=== PATIENT | male | born 2000 | race Caucasian/White ===

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

== ENCOUNTER 2021-07-04 11:29 | Emergency (ER) | payer OTHER, SELFPAY ==
--- NOTE | ~2021-07-04 | XR_ITS ---
EXAMINATION: XR finger 2nd RT min 2V INDICATION: Right second finger pain TECHNIQUE: Three views of the right second finger are obtained. COMPARISON: None available FINDINGS: There is soft tissue swelling of the second. No fracture is high. Bone alignment is normal. The joint spaces are unremarkable. IMPRESSION: 1. Soft tissue swelling without acute osseous abnormality. Reviewed, dictated and finalized at location A.
--- NOTE | 2021-07-04 11:33 | ED.UPPEXIN ---
HPI - Extremity Injury (Upper) General Chief Complaint: Wound/Laceration Stated Complaint: right 2nd finger injury Time Seen by Provider: 07/04/21 11:33 Source: patient Mode of arrival: ambulatory Limitations: no limitations History of Present Illness HPI narrative: Babar is a 21-year-old male patient presenting to the clinic today with complaints of a right index finger injury that occurred approximately 1 hour ago. 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 Does have some bleeding around the nail as well as a flap laceration to the dorsal finger just below the nailbed. Bleeding is controlled at this time Related Data Home Medications Medication Instructions Recorded Confirmed buspirone [BuSpar] 10 mg PO TID 05/15/20 05/15/20 pantoprazole [Protonix] 40 mg PO DAILY 05/15/20 05/15/20 paroxetine HCl [Paxil] 30 mg PO DAILY 05/15/20 05/15/20 Allergies Allergy/AdvReac Type Severity Reaction Status Date / Time No Known Allergies Allergy Verified 05/15/20 17:51 Review of Systems Review of Systems: Pertinent positives per HPI. Patient denies any fever, chills, rash, headache, visual changes, dizziness, cough, runny nose, sore throat, shortness of breath, chest pain, palpitations, nausea, vomiting, diarrhea, constipation, abdominal pain, or any urinary issues. PMFSH Past Medical History Medical History Anxiety Marijuana use PTSD (post-traumatic stress disorder) Social History Social History Smoking status: Never smoker Gender identity (if verbalized by the patient): Female Comments At the time of my signature, I reviewed and agree with the nursing past medical, surgical, social, and family history. There is no relevant family history pertinent to the patient complaint. Exam Narrative: General: Well-developed, well nourished, in no apparent distress Head: Normocephalic, atraumatic. Cardio: Regular rate and rhythm, s1 and s2 normal, no murmur appreciated. Resp: Clear to auscultation bilaterally, no rhonchi, rales, wheezing or rubs. Musculoskeletal: No deformity, bruising and swelling noted over the distal right index for, tender to palpation over the distal right index finger, peripheral pulse strong, no cyanosis, normal gait and station, open flap laceration to the dorsal distal right next finger just below the nailbed. Course Course Emergency Course: Portions of this record may have been created with voice recognition software. Level of Care: Express Care Visit Vital Signs Vital signs: Vital signs reviewed MDM - Extremity Injury (Upper) MDM Narrative Medical decision making narrative: At time of visit resting comfortably on the exam table. Wound to the right dorsal index finger was cleansed with technic care and normal saline. X-ray was performed and was negative for any fracture or malalignment. We will apply finger splint and have him wear the finger splint for 3 days and other supportive measures were discussed with patient he voiced understanding of discharge instructions and agrees with treatment plan. Differential Diagnosis Differential diagnosis: Likely finger sprain and other (Finger fracture, crush injury, soft tissue injury, skin infection) Imaging Data Attestation: I personally reviewed and interpreted this imaging study as follows: My impression: Negative for fracture or malalignment of the right index finger Radiologist's impression: Express Care [address] [id number] XRay ReportSigned Patient: Babar Hancock RDOB: 2000MR#: [id number]/Sex: 21 / MAcct:[id number]: EXPCOLL ADM Date: 07/04/21Attending Dr: Ordering Physician: Lauro Mendiola APRN Date of Service: 07/04/21 Procedure(s): XR finger 2nd RT min 2V Accession Number(s): [id number] cc: Dariel
[2021-07-04 11:36] VITALS: BP 123/74; PULSE 88; RESP 16; TEMP 36.5; O2SAT 100
== END 2021-07-04 12:05 | disposition home or self-care (01) ==
PROVIDERS: Emergency Provider Nurse Practitioner Family; PCP Nurse Practitioner Adult Health
DX: S67.10XA Crushing injury of unspecified finger(s), initial encounter (principal); S61.210A Laceration without foreign body of right index finger without damage to nail, initial encounter; W22.8XXA Striking against or struck by other objects, initial encounter
CPT/HCPCS: 29130; 73140; 99213; G0463

== ENCOUNTER 2021-07-19 15:49 | Emergency (ER) | payer OTHER, SELFPAY ==
[2021-07-19 15:57] VITALS: BP 115/64; PULSE 78; RESP 16; TEMP 37.2; O2SAT 100
--- NOTE | 2021-07-19 16:19 | ED.EYEPROB ---
HPI - Eye Problem General Chief complaint: Eye Problems Stated complaint: left eye redness Time Seen by Provider: 07/19/21 16:19 Source: patient and RN notes reviewed Mode of arrival: ambulatory Limitations: no limitations History of Present Illness HPI Narrative: 21-year-old male presents to the [facility] with left eye redness since yesterday. No treatment [employer]. Wears contacts. Reports discharge and crusting of the eye lid. Blurry vision or change in vision. Denies headaches. No chest pain or abdominal pain. Denies fevers MD chief complaint: eye pain and eye redness Related Data Home Medications Medication Instructions Recorded Confirmed buspirone [BuSpar] 10 mg PO TID 05/15/20 07/19/21 pantoprazole [Protonix] 40 mg PO DAILY 05/15/20 07/19/21 paroxetine HCl [Paxil] 30 mg PO DAILY 05/15/20 07/19/21 atomoxetine 40 mg PO DAILY 07/19/21 07/19/21 escitalopram oxalate 10 mg PO DAILY 07/19/21 07/19/21 Allergies Allergy/AdvReac Type Severity Reaction Status Date / Time No Known Allergies Allergy Verified 07/19/21 16:33 Review of Systems Review of Systems: All systems reviewed & are unremarkable except as noted in HPI and below Constitutional: Constitutional: Reports no additional constitutional complaints, Denies chills and Denies fever(s) Eyes: Eyes: Reports as per HPI Comments: Left eye reddening ENT: Reports system reviewed and no additional complaints, except as documented Cardiovascular: Cardiovascular: Reports no additional cardiovascular complaints Respiratory: Respiratory: Reports no additional respiratory complaints Gastrointestinal: Gastrointestinal: Reports no additional gastrointestinal complaints Musculoskeletal: Musculoskeletal: Reports no additional musculoskeletal complaints Integumentary/Breasts: Skin/Breast: Reports system reviewed and no additional complaints, except as docu Neurologic: Reports system reviewed and no additional complaints, except as documented Psychiatric: Psychiatric: Reports no additional psychiatric complaints Allergic/Immunologic: Allergic/Immunologic: Reports no additional allergic/immunologic complaints PMFSH Past Medical History Medical History Anxiety Marijuana use PTSD (post-traumatic stress disorder) Social History Social History Smoking status: Never smoker Gender identity (if verbalized by the patient): Female Comments At the time of my signature, I reviewed and agree with the nursing past medical, surgical, social, and family history. There is no relevant family history pertinent to the patient complaint. Exam Const: General: healthy appearing, no acute distress and alert Nutritional Appearance: well nourished Orientation/consciousness: patient oriented x3 Limitations: no limitations HENMT: Head: normal to inspection Ears: external ears normal, TM's normal bilaterally and EAC's normal Eyes: General: appearance normal, both eyes and all related structures Periorbital: periorbital findings normal Conjunctivae: conjunctival abnormality left conjunctival injection localized and discharge mucoid Sclera: scleral abnormality Cornea: corneas normal and fluorescein used Pupils: Equal, round and reactive pupils present EOM: EOMs intact bilaterally Direct Ophthalmoscopy: no photophobia Other: Redness to left eye without signs of an abrasion or ulceration Neck: Neck: normal visual inspection, no lymphadenopathy and no meningeal signs Chest: Chest palpation & inspection: normal inspection of the chest Resp: Effort & Inspection: normal respiratory effort and no use of accessory muscles Auscultation: clear to auscultation bilaterally, no crackles, no rales, no rhonchi and no wheezes Cardio: Rate: regular rate Rhythm: regular rhythm GI: GI Palp: Yes Soft to palpation and No Tenderness to palpation present (GI) Back/Spine/Pelvis: Back: no CVA
== END 2021-07-19 16:38 | disposition home or self-care (01) ==
PROVIDERS: Emergency Provider Nurse Practitioner; PCP Nurse Practitioner Adult Health
DX: H10.32 Unspecified acute conjunctivitis, left eye (principal); F41.9 Anxiety disorder, unspecified
CPT/HCPCS: 99213; A9270; G0463

== ENCOUNTER 2021-08-17 21:25 | Emergency (ER) | payer OTHER, SELFPAY ==
[2021-08-17 21:41] VITALS: BP 117/60; PULSE 64; RESP 18; TEMP 36.4; O2SAT 98
--- NOTE | 2021-08-17 22:18 | ED.GENADULT ---
HPI - General Adult General Chief complaint: Wound/Laceration Stated complaint: Right Arm Laceration Time Seen by Provider: 08/17/21 22:12 History of Present Illness HPI narrative: 21-year-old male presenting to the emergency department for evaluation of an abrasion/laceration to his right forearm. Patient states that approximately 7:00 tonight he was walking in a [place] and slipped and landed on a concrete block resulting in the laceration/abrasion to his right arm. Patient denies striking his head denies loss consciousness. Related Data Home Medications Medication Instructions Recorded Confirmed buspirone 10 mg tablet 10 mg PO TID 05/15/20 07/19/21 pantoprazole 40 mg tablet,delayed 40 mg PO DAILY 05/15/20 07/19/21 release (Protonix) paroxetine HCl 30 mg tablet (Paxil) 30 mg PO DAILY 05/15/20 07/19/21 atomoxetine 40 mg capsule 40 mg PO DAILY 07/19/21 07/19/21 escitalopram oxalate 10 mg tablet 10 mg PO DAILY 07/19/21 07/19/21 Allergies Allergy/AdvReac Type Severity Reaction Status Date / Time No Known Allergies Allergy Verified 07/19/21 16:33 Review of Systems Review of Systems: CONSTITUTIONAL: Denies fever, chills, or sweats. EYES: Denies visual changes, redness, or discharge. ENT: Denies rhinorrhea, congestion, sore throat, or otalgia. CARDIOVASCULAR: Denies chest pain, palpitations, or edema. RESPIRATORY: Denies cough or dyspnea. GASTROINTESTINAL: Denies abdominal pain, nausea, vomiting, or diarrhea. GENITOURINARY: Denies dysuria or hematuria. SKIN: See HPI MUSCULOSKELETAL: Denies back pain, joint pain, or myalgia. NEUROLOGIC: Denies headache, numbness, or weakness. PMFSH Past Medical History Medical History Anxiety Marijuana use PTSD (post-traumatic stress disorder) Social History Social History Smoking status: Never smoker Gender identity (if verbalized by the patient): Female Exam Narrative: APPEARANCE: Well appearing, no pain, no distress, well-nourished. HEAD: normocephalic, atraumatic. EYES: PERRLA/EOMI, conjunctivae clear. NOSE: Normal no drainage NECK: Supple. No adenopathy, no masses. RESPIRATORY: Airway patent, respirations nonlabored. Clear to auscultation bilaterally, no rales, rhonchi, wheezing. CARDIOVASCULAR: Regular rate and rhythm without murmurs rubs or gallops. ABDOMINAL: Soft, nontender, nondistended, normal bowel sounds MUSCULOSKELETAL: Moves all extremities. Strength/ROM intact, No edema, No calf tenderness. NEURO: Alert. Cranial nerves II through XII intact. Good gait. Good coordination SKIN: Large abrasion to the right forearm with a 4 cm laceration Course Course Emergency Course: Laceration was repaired as described elsewhere. Vital Signs Vital signs: Vital Signs Temperature 97.5 F L 08/17/21 21:41 Pulse Rate 64 08/17/21 21:41 Respiratory Rate 18 08/17/21 21:41 Blood Pressure 117/60 08/17/21 21:41 Pulse Oximetry 98 08/17/21 21:41 Oxygen Delivery Room Air 08/17/21 21:41 Temperature 97.5 F L 08/17/21 21:41 Pulse Rate 76 08/17/21 23:30 Respiratory Rate 18 08/17/21 23:30 Blood Pressure 131/74 08/17/21 23:30 Pulse Oximetry 100 08/17/21 23:30 Oxygen Delivery Room Air 08/17/21 21:41 Procedures Laceration Laceration 1: Time: 22:56 Site: upper extremity Side (If applicable): right Size (cm): 3 Description: linear Depth: simple, single layer Local Anesthetic: lidocaine 1% and with bicarb Amount of anesthesia used (mL): 4 Pre-repair: wound explored, irrigated and irrigated extensively ====== Skin Level ====== Skin layer closed with: prolene Size (cm): 4-0 Number of sutures: 3 Technique: simple, interrupted ====== Subcutaneous Layer ====== ====== Muscle Layer ====== ====== Tendon Layer ====== Medical [place]
[2021-08-17 23:30] VITALS: BP 131/74; PULSE 76; RESP 18; O2SAT 100
== END 2021-08-17 23:32 | disposition home or self-care (01) ==
PROVIDERS: Emergency Provider Emergency Medicine; PCP Nurse Practitioner Adult Health
DX: S51.811A Laceration without foreign body of right forearm, initial encounter (principal); F41.9 Anxiety disorder, unspecified; W01.198A Fall on same level from slipping, tripping and stumbling with subsequent striking against other object, initial encounter
CPT/HCPCS: 12002; 99282

== ENCOUNTER 2023-01-13 08:28 | Emergency (ER) | payer OTHER, SELFPAY ==
[2023-01-13] VITALS (7 sets, daily range): BP systolic 107–131; BP diastolic 63–95; PULSE 58–80; RESP 20; TEMP 36.1–36.6; O2SAT 96–100
[2023-01-13 08:53] LABS: Basophils Absolute Auto 0.08 K/mm3 (0.00-0.10); Basophils Percent Auto 0.6 % (0.0-1.0); Eosinophils Absolute Auto 0.52 K/mm3 (0.02-0.50); Eosinophils Percent Auto 3.8 % (1.0-6.0); Hematocrit 45.4 % (40.0-54.0); Hemoglobin 15.5 g/dL (14.0-18.0); Immature Granulocyte Absolute 0.05 K/mm3 (0.00-0.00); Immature Granulocyte Percent A 0.4 % (0.0-0.0); Lymphocytes Absolute Auto 2.69 K/mm3 (1.10-4.50); Lymphocytes Percent Auto 19.8 % (18.0-42.0); Mean Corpuscular HGB Conc 34.1 g/dL (32.0-36.0); Mean Corpuscular Hemoglobin 28.8 pg (27.0-31.0); Mean Corpuscular Volume 84.2 fL (78.0-102.0); Monocytes Absolute Auto 0.65 K/mm3 (0.10-0.90); Monocytes Percent Auto 4.8 % (2.0-11.0); Neutrophils Absolute Auto 9.6 K/mm3 (1.7-7.2); Neutrophils Percent Auto 70.6 % (50.0-70.0); Platelet Count Result 330 K/mm3 (150-420); Red Blood Count 5.39 M/mm3 (4.70-6.10); Red Cell Distribution Width 12.5 % (11.6-14.4); White Blood Count 13.6 K/mm3 (4.8-10.8)
[2023-01-13] MEDS: ONDANSETRON INJ 4 MG/2 ML VIAL IV PUSH (08:53)
[2023-01-13] MEDS: SODIUM CHLORIDE 0.9% IV 1,000 ML 999 ML IV CONT (08:53)
[2023-01-13 09:06] LABS: Alanine Aminotransferase 31 U/L (16-63); Albumin Level 4.1 g/dL (3.4-5.0); Alkaline Phosphatase 164 U/L (46-116); Anion Gap 8 mmol/L (8-16); Aspartate Amino Transferase 20 U/L (15-37); Bilirubin,Total 0.5 mg/dL (0.00-1.00); Blood Urea Nitrogen 20 mg/dL (7-18); Calcium 9.6 mg/dL (8.5-10.1); Carbon Dioxide 32 mmol/L (21-32); Chloride 98 mmol/L (98-108); Estimated Glomerular Filt Rate > 60; Glucose 141 mg/dL (70-99); Osmolality Calculated 290 mOsm/kg (285-295); Potassium 3.8 mmol/L (3.5-5.1); Sodium 138 mmol/L (136-145); Total Protein 8.6 g/dL (6.4-8.2)
[2023-01-13 09:29] LABS: Influenza A QL RT-PCR Negative (Negative); Influenza B QL RT-PCR Negative (Negative); RSV RNA, RT-PCR Negative (Negative); SARS-CoV-2 RNA PCR Negative (Negative)
--- NOTE | 2023-01-13 09:34 | ED.NAVMDI ---
HPI - Nausea/Vomiting/Diarrhea General Chief complaint: Nausea/Vomiting/Diarrhea Stated complaint: withdrawal Time Seen by Provider: 01/13/23 08:34 Source: patient and family Mode of arrival: ambulatory History of Present Illness HPI Narrative: this is a 22-year-old male who presents with nausea vomiting and episodes of diarrhea, with no fever chills no crampy abdominal pain no dysuria no chest pain or shortness of breath. Patient's symptoms started yesterday had bouts of diarrhea with vomiting, is a opioid user and last used [place] all last night. Patient states that he feels like he is withdrawing. MD elicited complaint: nausea, vomiting and diarrhea Onset (ago): day(s) Related Data Home Medications Medication Instructions Recorded Confirmed buspirone 10 mg tablet 15 mg PO BID 05/15/20 01/13/23 pantoprazole 40 mg tablet,delayed 40 mg PO DAILY 05/15/20 01/13/23 release (Protonix) escitalopram oxalate 10 mg tablet 15 mg PO DAILY 07/19/21 01/13/23 lisdexamfetamine 40 mg capsule 40 mg PO DAILY 01/13/23 01/13/23 (Vyvanse) quetiapine 50 mg tablet 50 mg PO HS 01/13/23 01/13/23 Allergies Allergy/AdvReac Type Severity Reaction Status Date / Time No Known Allergies Allergy Verified 01/13/23 09:09 Review of Systems Review of Systems: All systems reviewed & are unremarkable except as noted in HPI and below PMFSH Past Medical History Medical History Anxiety Marijuana use PTSD (post-traumatic stress disorder) Social History Social History Smoking status: Never smoker Gender identity (if verbalized by the patient): Female Exam Const: General: healthy appearing and no acute distress Nutritional Appearance: well nourished HENMT: Head: normal to inspection Face and sinus: normal facial exam Eyes: Conjunctivae: conjunctivae normal Pupils: Equal, round and reactive pupils present EOM: EOMs intact bilaterally Neck: Neck: normal visual inspection, no lymphadenopathy and no meningeal signs Chest: Chest palpation & inspection: normal inspection of the chest Resp: Effort & Inspection: normal respiratory effort Auscultation: clear to auscultation bilaterally Cardio: Rate: regular rate Rhythm: regular rhythm GI: GI Palp: Yes Soft to palpation Auscultation: normal bowel sounds : General: Yes bladder normal to palpation Skin: General skin exam: normal color Rashes: no rashes Psych: Mental Status: mental status grossly normal Affect: normal affect Course Course Emergency Course: Patient had blood work performed CMP within normal limits, his white blood count is mildly elevated, the patient did receive IV fluids and IV Zofran and symptoms of nausea and vomiting have improved, advised to follow-up with his primary to get established with [facility]. Vital Signs Vital signs: Vital Signs Temperature 36.1 C L 01/13/23 09:00 Pulse Rate 58 L 01/13/23 09:00 Respiratory Rate 20 01/13/23 09:00 Blood Pressure 107/63 01/13/23 09:00 Pulse Oximetry 100 01/13/23 09:00 Oxygen Delivery Room Air 01/13/23 09:00 Temperature 36.1 C L 01/13/23 09:00 Pulse Rate 58 L 01/13/23 09:00 Respiratory Rate 20 01/13/23 09:00 Blood Pressure 107/63 01/13/23 09:00 Pulse Oximetry 100 01/13/23 09:00 Oxygen Delivery Room Air 01/13/23 09:00 MDM - Nausea/Vomiting/Diarrhea Lab Data 01/13/23 08:47 01/13/23 08:47 Labs: Lab Results 01/13/23 Range/Units 08:47 WBC 13.6 H (4.8-10.8) K/mm3 RBC 5.39 (4.70-6.10) M/mm3 Hgb 15.5 (14.0-18.0) g/dL Hct 45.4 (40.0-54.0) % MCV 84.2 (78.0-102.0) fL MCH 28.8 (27.0-31.0) pg MCHC 34.1 (32.0-36.0) g/dL RDW 12.5 (11.6-14.4) % Plt Count 330 (150-420) K/mm3 MPV 10.0 (8.7-11.0) fl Immature Gran % (Auto) 0.4 H (0.0-0.0) % Neut % (Auto) 70.6 H (50.0-70.0) % Lymph
== END 2023-01-13 10:03 | disposition home or self-care (01) ==
PROVIDERS: Emergency Provider Emergency Medicine
DX: K52.9 Noninfective gastroenteritis and colitis, unspecified (principal); F11.10 Opioid abuse, uncomplicated; Z79.899 Other long term (current) drug therapy; Z20.822 Contact with and (suspected) exposure to COVID-19
CPT/HCPCS: 36415; 80053; 85025; 87637; 96361; 96374; 99284; J2405; J7030

== ENCOUNTER 2023-05-13 10:39 | Emergency (ER) | payer OTHER, SELFPAY ==
[2023-05-13] VITALS (7 sets, daily range): BP systolic 102–122; BP diastolic 54–90; PULSE 106–130; RESP 19–20; TEMP 37.4; O2SAT 94–99
--- NOTE | ~2023-05-13 | CT_ITS ---
EXAMINATION: CTA chest PE protocol DATE: 05/13/2023 11:51 INDICATION: Left chest pain. TECHNIQUE: Computed tomography angiography (CTA) of the chest was performed with 100 mL Omnipaque-350 intravenous contrast timed to evaluate the pulmonary arteries. Coronal maximum intensity projection 3D-reconstructions were created by the technologist. Automated exposure control and iterative reconst ruction technique were employed. The dose-length product was 432.71 mGy-cm. COMPARISON: CT abdomen and pelvis 08/06/2019 FINDINGS: There are small right and moderate-sized left pleural effusions. There is dependent atelect asis bilaterally. The heart size is normal. There is a small pericardial effusion. There is no pulmon lan embolus. There is mild thoracic spondylosis. IMPRESSION: 1. No pulmonary embolus. Sensitivity is mildly decreased by motion artifact. 2. Small right and moderate-sized left pleural effusions. 3. Small pericardial effusion. Reviewed, dictated and finalized at location A.
--- NOTE | ~2023-05-13 | US_ITS ---
EXAMINATION: US venous doppler [facility] DATE: 05/13/2023 11:18 INDICATION: Chest pain. Bilateral lower limb pain. TECHNIQUE: Grayscale ultrasound images without and with compression and Doppler ultrasound images of the bilateral lower extremity veins were obtained. COMPARISON: None. FINDINGS: The visualized portions of right common femoral vein, profunda (deep) femoral vein, femoral vein, pop liteal vein, posterior tibial veins, peroneal veins, gastrocnemius vein and greater saphenous vein ou tflow are patent. The visualized portions of left common femoral vein, profunda femoral vein, femoral vein, popliteal v ein, posterior tibial veins, peroneal veins, gastrocnemius vein and greater saphenous vein outflow ar e patent. IMPRESSION: 1. No deep venous thrombosis in either lower limb. Reviewed, dictated and finalized at location B.
--- NOTE | 2023-05-13 10:40 | ED.CHESTPAIN ---
HPI - Chest Pain General Chief Complaint: Upper Respiratory Infection Stated Complaint: difficult breathing Time Seen by Provider: 05/13/23 10:40 History of Present Illness HPI narrative: Patient is a 22 year old male with history of anxiety, depression, opiate use disorder here with left sided chest pain. Patient notes that symptoms began about 1 week ago and initially included some upper back pain and shoulder pain bilaterally along with some shortness of breath. He had one day of fever at the beginning of his illness that then resolved. He note that he went to see a chiropractor which helped temporarily but the symptoms quickly returned. He also went to an urgent care 3 days ago where he was tested for COVID and he was found to be negative. Pain is currently located in his left upper back and lateral chest wall, worse with deep inspiration. He denies cough, congestion, fever, chills. No urinary symptoms. No trauma. He has been experiencing some bilateral thigh pain and cramping this week. No recent surgeries, no recent travel, no prior history of PE/DVT. No cardiac history. He notes history of opiate use disorder, last used about 3-4 months ago after undergoing treatment after his last visit here in the department. Patient notes that he would typically snort fentanyl as his primary method of opiate use. Related Data Home Medications Medication Instructions Recorded Confirmed buspirone 10 mg tablet 15 mg PO BID 05/15/20 05/13/23 pantoprazole 40 mg tablet,delayed 40 mg PO DAILY 05/15/20 05/13/23 release (Protonix) escitalopram oxalate 10 mg tablet 15 mg PO DAILY 07/19/21 05/13/23 lisdexamfetamine 40 mg capsule 40 mg PO DAILY 01/13/23 05/13/23 (Vyvanse) quetiapine 50 mg tablet (Seroquel) 50 mg PO HS 01/13/23 05/13/23 albuterol sulfate 90 mcg/actuation 2 inh inhalation Q4H 05/13/23 05/13/23 aerosol inhaler Allergies Allergy/AdvReac Type Severity Reaction Status Date / Time No Known Allergies Allergy Verified 05/13/23 10:58 Review of Systems Review of Systems: All systems reviewed & are unremarkable except as noted in HPI and below PMFSH Past Medical History Medical History Anxiety Marijuana use PTSD (post-traumatic stress disorder) Social History Social History Smoking status: Never smoker Gender identity (if verbalized by the patient): Female Exam Narrative: GENERAL: Well-appearing, well-nourished, and in no acute distress. HEAD: Normocephalic, atraumatic. EYES: PERRLA and EOMI. ENT: Nares clear. Mucous membranes moist. NECK: Supple. CHEST: Clear to auscultation. No respiratory distress. HEART: Tachycardic. Normal peripheral pulses. ABDOMEN: Soft, nontender, nondistended. EXTREMITIES: Normal range of motion. No edema. No calf tenderness. SKIN: Warm, dry, no rash. NEURO: No focal deficits. Alert and oriented x3. PSYCH: Normal mood and affect. Course Course Emergency Course: Chart review performed. Patient here for cough, chest pain. Triage vitals show tachycardia. Last ED visit here was for gastroenteritis symptoms in December 2022. They had noted he is an opioid user and suspected he was withdrawing at that visit. Patient seen and evaluated, non toxic appearing. He is tachycardic to the 130s, has pleuritic chest pain. Moderate risk for PE based on Wells criteria. Will do cardiac workup, CTA PE, bilateral LE dopplers. IVF ordered. COVID swab ordered. Patient agreeable to workup and plan. Lab work and imaging reviewed. Mild non specific elevation in WBC at 11.5, electrolytes within normal limits, troponin negative. BNP minimally elevated at 306. COVID, Influenza, RSV negative. CTA shows no large PE but he does have a moderate sized pleural effusion on the left side which I suspect is the source of his chest pain. Given he did have a fever at the onset of illness and remains tachycard
--- NOTE | 2023-05-13 10:47 | ECG_ITS ---
Measurements Intervals [place] Rate: 112 P: 29 SD: 127 QRS: 41 QRSD: 92 T: -31 QT: 312 QTc: 426 Interpretive Statements SINUS TACHYCARDIA INCOMPLETE RIGHT BUNDLE BRANCH BLOCK VOLTAGE CRITERIA FOR LVH CONSIDER INFERIOR INFARCT, AGE INDETERMINATE BORDERLINE ST-T WAVE ABNORMALITY- ANTEROLATERAL LEADS ABNORMAL ECG NO PREVIOUS ECG AVAILABLE FOR COMPARISON Electronically Signed On 05-13-2023 13:21:57 CDT by Bola Butt D.O.
[2023-05-13 11:08] LABS: Basophils Absolute Auto 0.03 K/mm3 (0.00-0.10); Basophils Percent Auto 0.3 % (0.0-1.0); Eosinophils Absolute Auto 0.09 K/mm3 (0.02-0.50); Eosinophils Percent Auto 0.8 % (1.0-6.0); Hematocrit 38.7 % (40.0-54.0); Immature Granulocyte Absolute 0.04 K/mm3 (0.00-0.00); Immature Granulocyte Percent A 0.3 % (0.0-0.0); Lymphocytes Absolute Auto 2.44 K/mm3 (1.10-4.50); Lymphocytes Percent Auto 21.2 % (18.0-42.0); Mean Corpuscular HGB Conc 33.6 g/dL (32-36); Mean Corpuscular Hemoglobin 27.3 pg (27.0-31.0); Mean Corpuscular Volume 81.1 fL (78.0-102.0); Mean Platelet Volume 8.6 fl (8.7-11.0); Monocytes Percent Auto 8.7 % (2.0-11.0); Neutrophils Absolute Auto 7.89 K/mm3 (1.70-7.20); Neutrophils Percent Auto 68.7 % (50.0-70.0); Platelet Count Result 371 K/mm3 (150-420); Red Blood Count 4.77 M/mm3 (4.70-6.10); Red Cell Distribution Width 11.9 % (11.6-14.4); White Blood Count 11.5 K/mm3 (4.8-10.8)
[2023-05-13] MEDS: LACTATED RINGERS 1,000 ML 999 ML IV CONT (11:21)
[2023-05-13 11:22] LABS: Partial Thromboplastin Time 30.4 Sec (23.9-30.70); Prothrombin Time 11.3 Seconds (9.50-12.1)
[2023-05-13 11:25] LABS: SARS-CoV-2 RNA PCR Negative (Negative)
[2023-05-13] MEDS: KETOROLAC 15 MG/ML VIAL (*BKC) IV PUSH (11:27)
[2023-05-13 11:28] LABS: Influenza A QL RT-PCR Negative (Negative); Influenza B QL RT-PCR Negative (Negative); RSV RNA, RT-PCR Negative (Negative)
[2023-05-13 11:30] LABS: Alanine Aminotransferase 25 U/L (16-63); Alkaline Phosphatase 110 U/L (46-116); Anion Gap 10 mmol/L (8-16); Aspartate Amino Transferase 18 U/L (15-37); Bilirubin,Total 0.8 mg/dL (0.00-1.00); Blood Urea Nitrogen 10 mg/dL (7-18); Calcium 8.6 mg/dL (8.5-10.1); Carbon Dioxide 28 mmol/L (21-32); Chloride 97 mmol/L (98-108); Estimated CRCL calculation 113 ml/min; Estimated Glomerular Filt Rate > 60; Glucose 138 mg/dL (70-99); NT Pro B Type Natriuretic Pept 306 pg/mL (0-125); Osmolality Calculated 281 mOsm/kg (285-295); Potassium 3.9 mmol/L (3.5-5.1); Sodium 135 mmol/L (136-145); Total Protein 7.8 g/dL (6.4-8.2); Troponin I 15.7 ng/L (0.00-60.4)
[2023-05-13] MEDS: SODIUM CHLORIDE 0.9% IV 1,000 ML 999 ML IV CONT (12:46)
[2023-05-13] MEDS: DOXYCYCLINE 100 MG/NS 100 ML 100 MG/100 ML BAG IVPB (12:50)
[2023-05-13 12:51] LABS: CRP 20.7 mg/dL (0.0-0.9)
[2023-05-13 12:57] LABS: Lactic Acid Reflex 0.7 mmol/L (0.4-2.0)
[2023-05-13] MEDS: VANCOMYCIN 1,000 MG/NS 250 ML 1,000 MG/250 ML BAG 250 MG IVPB (13:15)
[2023-05-13] MEDS: metroNIDAZOLE 500 MG/ISO 100ML 500 MG/100 ML BAG 100 MG IVPB (13:50)
[2023-05-13] MEDS: VANCOMYCIN 1,250 MG/NS 250 ML 1,250 MG/250 ML BAG 166.67 MG IVPB (14:23)
[2023-05-13 14:29] LABS: MRSA (PCR) NOT DETECTED (NOT DETECTE)
== END 2023-05-13 14:58 | disposition short-term general hospital (02) ==
PROVIDERS: Emergency Provider Student in an Organized Health Care Education/Training Program
DX: J90 Pleural effusion, not elsewhere classified (principal); R79.82 Elevated C-reactive protein (CRP); Z79.899 Other long term (current) drug therapy; Z20.822 Contact with and (suspected) exposure to COVID-19
CPT/HCPCS: 36415; 71275; 80053; 83605; 83880; 84484; 85025; 85610; 85730; 86140; 87040; 87637; 87641; 93005; 93970; 96361; 96365; 96366; 96367; 96375; 99285; J0696; J1836; J1885; J3370; J7030; J7120; Q9967

== ENCOUNTER 2023-05-13 17:32 | Inpatient (IN) | payer OTHER, SELFPAY ==
--- NOTE | ~2023-05-13 | XR_ITS ---
EXAMINATION: [id number] DATE: 05/14/2023 09:29 INDICATION: Left pleural effusion postthoracentesis TECHNIQUE: PA and lateral views of the chest were obtained. COMPARISON: Chest radiograph dated 08/06/[address] dated 05/13/2023 FINDINGS: Interval resolution of the prior small to moderate-sized left pleural effusion postthoracentesis. No pneumothorax. Triangular retrocardiac opacity medial left lower lung zone consistent with partial lef t lower lobe collapse although cannot exclude superimposed pneumonia. Additional alignment and mild o pacities at the right lung base consistent with very small right pleural effusion and associated basi lar atelectasis and/or pneumonia. The cardiomediastinal silhouette is normal. Visualized bones and so ft tissues are unremarkable. IMPRESSION: 1. Resolution of prior left pleural effusion with no pneumothorax post thoracentesis. 2. Opacities at the bilateral lower lung zones which could represent atelectasis and/or pneumonia. 3. Very small right pleural effusion. Reviewed, dictated and finalized at location A. IMPRESSION: 1. Resolution of prior left pleural effusion with no pneumothorax post thoracen tesis. 2. Opacities at the bilateral lower lung zones which could represent atelectas is and/or pneumonia. 3. Very small right pleural effusion.
--- NOTE | ~2023-05-13 | XR_ITS ---
EXAMINATION: XR chest 2V DATE: 05/15/2023 08:15 INDICATION: Pleural effusion. TECHNIQUE: PA and lateral views of the chest were obtained. COMPARISON: Chest CT dated 05/13/2023 and chest radiograph dated 08/06/2019 FINDINGS: Small bilateral pleural effusions with blunting at the posterior sulci and right costophrenic angle. Dense consolidation at the medial left lower lung zone and less dense airspace opacities with air bro nchograms in the right lower lung zone, both which could represent pneumonia or atelectasis. No pulmo nary edema or pneumothorax. The cardiac silhouette appears enlarged which could related to the paraca rdial effusions seen on prior CT. Visualized bones and soft tissues are unremarkable. IMPRESSION: 1. Opacities in the bilateral lower lung zones which could represent atelectasis or pneumonia. 2. Small bilateral pleural effusions. 3. Enlarged cardiac silhouette which could be related to the pericardial effusion identified on prior CT with normal heart size. Reviewed, dictated and finalized at location A. IMPRESSION: 1. Opacities in the bilateral lower lung zones which could represent atelectasi s or pneumonia. 2. Small bilateral pleural effusions. 3. Enlarged cardiac silhouette which could be related to the pericardial effusi on identified on prior CT with normal heart size.
--- NOTE | ~2023-05-13 | US_ITS ---
EXAMINATION: US thoracentesis DATE: 05/14/2023 09:38 INDICATION: Left pleural effusion TECHNIQUE: The procedure and its risks and benefits were discussed with the patient. Potential risks discussed included bleeding, infection, and pneumothorax. The patient understood the risks and agreed to proceed. The skin was prepped and draped in sterile fashion. 1% lidocaine was used for local anes thesia. Under ultrasound guidance, a 5 Fr catheter with trochar was advanced into the left pleural ef fusion. Fluid was aspirated. The catheter was removed, and a dressing was applied. There were no imme diate complications. FINDINGS: Ultrasound images demonstrate a small to moderate sized left pleural effusion and the catheter within the fluid. IMPRESSION: 1. Successful ultrasound-guided thoracentesis yielding 900 mL of yellowish fluid. Reviewed, dictated and finalized at location A. IMPRESSION: 1. Successful ultrasound-guided thoracentesis yielding 900 mL of yellowish flu id.
--- NOTE | ~2023-05-13 | XR_ITS ---
Clinical Indication: Pleural effusions PA and lateral views of the chest: Comparison: 05/15/2023 Findings: There is mild right basilar haziness. Left lung clear. Cardiomediastinal silhouette is wit hin normal limits. Bones and soft tissues are unremarkable. Impression: . Minimal right basilar haziness. Correlate for atelectasis/edema versus pneumonia. Reviewed, dictated and finalized at location . Impression: . Minimal right basilar haziness. Correlate for atelectasis/edema versus pneumo brooks.
--- NOTE | 2023-05-13 15:46 | ADMGEN ---
This patient, Babar Monaco, was admitted to [facility] Surg Room 327-01. Patient/family oriented to hospital policies and general routines including ID bracelet, bed and alarms, visiting hours, pain management, procedures, bathroom and other care routines, personal items, smoking policy, room service/diet, and visiting hours. Information on how to activate the Rapid Response Team has been discussed. Patient/Family are encouraged to report perceived risks to care and to ask questions if they do not understand what they are told or what they should do.
[2023-05-13 16:00] VITALS: BP 117/67; PULSE 105; RESP 18; TEMP 37.3; O2SAT 98; BMI 30.8
--- NOTE | 2023-05-13 16:32 | PM.IMPN ---
Progress Note: A&P Assessment and Plan (1) Tachycardia: Code(s): R00.0 - Tachycardia, unspecified Status: Acute (2) Pleural effusion on left: Code(s): J90 - Pleural effusion, not elsewhere classified Status: Acute (3) CRP elevated: Code(s): R79.82 - Elevated C-reactive protein (CRP) Status: Acute (4) Sepsis: Code(s): A41.9 - Sepsis, unspecified organism Status: Acute (5) Pericardial effusion: Code(s): I31.39 - Other pericardial effusion (noninflammatory) Status: Acute Plan 22-year-old male with past medical history opioid abuse via intranasal route with fentanyl presents with 1 week of shortness of breath and left upper back pain. Patient is accompanied by his mother who helps to supply history. Patient has been clean of opioid use for approximately 4 months. He just returned home from a rehab center. Shortly before returning home he began to experience shortness of breath and sharp pain of the left upper back worsened by inspiration which has persisted. At 1 point he may have felt feverish. He denies cough, headache, mental status changes, abdominal pain, nausea or vomiting, diarrhea, weight gain, weight loss, swelling. Evaluation in [place] [facility] demonstrated a leukocytosis, tachycardia, elevated CRP, hypoalbuminemia and a CTA chest demonstrating no PE but small right and moderate size left pleural effusion with a small pericardial effusion. EKG demonstrated voltage criteria for LVH. Venous Dopplers of the lower extremities negative. The underlying etiology of the patient's bilateral pleural effusions greater on the left is unknown. Patient will be going for a therapeutic and diagnostic thoracentesis today. Pleural fluid studies have been entered. Repeat chest x-ray post thoracentesis and again in the morning to assess for improvement. The patient does report he was told in the past he has a baseline fast heart rate although with his tachycardia and leukocytosis will treat as sepsis without shock due to presumed underlying pneumonia. Patient received vancomycin ceftriaxone and Flagyl at [place]. MRSA swab negative. Will continue with Unasyn. Blood cultures pending. Trend white count and CRP. EKG demonstrating LVH although maybe the pericardial effusion is affecting electrical conduction. None the less his BNP elevated at 306 so a surface echocardiogram has been ordered. Monitor for worsening pericardial effusion. Tylenol for pain control. Avoid narcotics and addictive substances at all cost. FEN: Saline lock IV. Regular diet after thoracentesis GI prophylaxis: Not indicated DVT prophylaxis: SCDs Lines: Peripheral IV Code Status: Full code Dispo: Stable on medical tele Subjective Date/time seen: 05/13/23 16:32 Interval history: 22-year-old male with past medical history opioid abuse via intranasal route with fentanyl presents with 1 week of shortness of breath and left upper back pain. Patient is accompanied by his mother who helps to supply history. Patient has been clean of opioid use for approximately 4 months. He just returned home from a rehab center. Shortly before returning home he began to experience shortness of breath and sharp pain of the left upper back worsened by inspiration which has persisted. At 1 point he may have felt feverish. He denies cough, headache, mental status changes, abdominal pain, nausea or vomiting, diarrhea, weight gain, weight loss, swelling. Evaluation in [place] [facility] demonstrated a leukocytosis, tachycardia, elevated CRP, hypoalbuminemia and a CTA chest demonstrating no PE but small right and moderate size left pleural effusion with a small pericardial effusion. EKG demonstrated voltage criteria for LVH. Review of Systems Review of Systems: All systems reviewed & are unremarkable except as noted in HPI and below (Subjective) Exam Const: General: comfortable and no acute distress Other: No acute distress
[2023-05-13] MEDS: AMPICILLIN SULB 3 GM/NS 100 ML 3 GM/100 ML VIAL IVPB ×2 (18:27→23:54)
[2023-05-13 20:00] VITALS: PULSE 119
[2023-05-13] MEDS: ACETAMINOPHEN 325 MG TABLET 650 MG PO (20:25)
[2023-05-13 21:22] VITALS: BP 114/63; PULSE 119; RESP 16; TEMP 37.7; O2SAT 95
[2023-05-13] MEDS: busPIRone HCL 5 MG TABLET 15 MG PO (21:50)
[2023-05-13] MEDS: QUEtiapine FUMARATE 100 MG TABLET PO (21:50)
[2023-05-13 23:15] LABS: Amphetamine Screen Urine Negative (Negative); Barbiturate Screen Urine Negative (Negative); Benzodiazepines Screen Urine Negative (Negative); Cannabinoid Screen Urine Positive (Negative); Cocaine Screen Urine Negative (Negative); Methadone Screen Urine Negative (Negative); Opiate Screen Urine Negative (Negative); Phencyclidine Screen Urine Negative (Negative)
[2023-05-14] VITALS (11 sets, daily range): BP systolic 104–131; BP diastolic 64–81; PULSE 91–127; RESP 16–18; TEMP 36.2–36.7; O2SAT 94–96
--- NOTE | 2023-05-14 | ECHO_ITS ---
Patient Info Name: Babar Monaco Age: 22 years : 2000 Gender: Male Ht: 68 in Wt: 202 lbs BSA: 2.12 m2 HR: 108 bpm BP: 131 / 75 mmHg Heart Rhythm: Sinus Rhythm Technical Quality: Good Exam Date: 05/14/2023 10:21 AM Exam Location: Echo Lab Patient Status: Inpatient Admit Date: 05/13/2023 Staff Ordering Physician: Marisa Mcneill MD [employer] Specialist: Romi Jorgensen RDCS Attending Provider: Marisa Mcneill MD Exam Type: CA echo doppler color flow Study Info Indications - LVH Complete two-dimensional, color flow and Doppler transthoracic echocardiogram is performed. Summary 1. Complete two-dimensional, color flow and Doppler transthoracic echocardiogram is performed. 2. Unremarkable 2D/Doppler echocardiogram. 3. Exam requested for LVH, no evidence of this. Left Ventricle Left ventricular chamber dimension is normal. Left ventricular systolic function is normal, estimated at 60-65%. The left ventricular diastolic function is normal. Right Ventricle Right ventricular chamber dimension is normal. Left Atria Left atrial chamber dimension is normal. Right Atria Right atrial chamber dimension is normal. Aortic Valve The aortic valve is normal. Pulmonic Valve The pulmonic valve is normal. Mitral Valve The mitral valve has normal leaflets. Tricuspid Valve The tricuspid valve leaflets are normal. Pericardium/Pleural The pericardium appears normal. Aorta The aortic root size at the sinus of Valsalva is normal. Left Ventricular Outflow Tract Name Value Normal LVOT 2D LVOT Diameter 2.0 cm LVOT Doppler LVOT Peak Gradient 5 mmHg LVOT Mean Gradient 3 mmHg LVOT VTI 19 cm LVOT VTI/AV VTI Ratio 1.0 LVOT Stroke Volume 59 ml LVOT CO 5.2 l/min LVOT CI 2.5 l/min/m2 Pulmonic Valve Name Value Normal RVOT Doppler RVOT Peak Gradient 2 mmHg PV Doppler PV Peak Gradient 5 mmHg Mitral Valve Name Value Normal MV Doppler MV Decel [place] 589 cm/s2 MV PHT 40 ms MV Area (PHT) 5.5 cm2 4.0-5.0 MV Diastolic Function MV E Peak Velocity 81 cm/s MV A Peak Velocity 46 cm/s MV E/A 1.8 MV Decel Time
[2023-05-14] MEDS: AMPICILLIN SULB 3 GM/NS 100 ML 3 GM/100 ML VIAL IVPB ×4 (05:44→23:04)
[2023-05-14] MEDS: ACETAMINOPHEN 325 MG TABLET 650 MG PO ×2 (05:49→20:04)
[2023-05-14 07:01] LABS: Basophils Percent Auto 0.4 % (0.2-1.2); Eosinophils Absolute Auto 0.2 K/mm3 (0-0.3); Eosinophils Percent Auto 1.9 % (0-4.4); Hemoglobin 12.6 g/dL (14.0-18.0); Immature Granulocyte Absolute 0.04 K/mm3 (0.00-0.031); Immature Granulocyte Percent A 0.4 % (0-0.5); Lymphocytes Absolute Auto 1.98 K/mm3 (0.9-3.2); Lymphocytes Percent Auto 19.1 % (18.3-44.2); Mean Corpuscular HGB Conc 33.2 g/dl (32-36); Mean Corpuscular Hemoglobin 27.7 pg (26-34); Mean Corpuscular Volume 83.5 fl (80-100); Mean Platelet Volume 9.7 fl (7.4-10.4); Monocytes Percent Auto 9.2 % (2.6-8.5); Neutrophils Absolute Auto 7.2 K/mm3 (1.3-6.7); Platelet Count Result 321 k/mm3 (150-375); Red Blood Count 4.55 M/mm3 (4.6-6.20); White Blood Count 10.4 K/mm3 (4.5-10.0)
[2023-05-14 07:30] LABS: Procalcitonin 0.1 ng/mL
[2023-05-14 07:51] LABS: Alanine Aminotransferase 18 U/L (6-50); Albumin Level 3.7 g/dL (3.5-5.1); Alkaline Phosphatase 110 U/L (38-126); Anion Gap 6 mmol/L (8-16); Aspartate Amino Transferase 24 U/L (17-59); Bilirubin,Total 0.8 mg/dL (0.2-1.3); Blood Urea Nitrogen 10 mg/dL (9-20); CRP 21.4 mg/dL (<1.0); Calcium 8.9 mg/dL (8.4-10.2); Carbon Dioxide 28 mmol/L (22-30); Chloride 102 mmol/L (98-107); Estimated CRCL calculation 140 ml/min; Estimated Glomerular Filt Rate > 60; Glucose 93 mg/dL (65-110); Magnesium 2.1 mg/dL (1.6-2.3); Potassium 3.9 mmol/L (3.4-5.0); Sodium 136 mmol/L (137-145)
[2023-05-14] MEDS: busPIRone HCL 5 MG TABLET 15 MG PO ×2 (09:41→20:04)
[2023-05-14] MEDS: ESCITALOPRAM OXALATE 5 MG TABLET 15 MG PO (09:41)
[2023-05-14] MEDS: PANTOPRAZOLE 40 MG TABLET PO (09:42)
[2023-05-14 11:23] LABS: pH Pleural Fluid 7.425 (7.210-7.500)
--- NOTE | 2023-05-14 11:32 | PM.IMPN ---
Progress Note: A&P Assessment and Plan (1) Pleural effusion on left: Code(s): J90 - Pleural effusion, not elsewhere classified Status: Inactive Assessment and Plan: CTA shows small right and moderate left pleural effusion Underwent diagnostic and therapeutic left thoracentesis ring with drainage of 900 mL of yellow fluid Fluid analysis and lab studies are pending He is maintaining adequate oxygen saturations on room air and symptoms have improved He is on Unasyn for possible infectious process Plan for repeat CXR in the morning Will consider pulmonology consultation based on pleural fluid analysis (2) Pericardial effusion: Code(s): I31.39 - Other pericardial effusion (noninflammatory) Status: Acute Assessment and Plan: Small pericardial effusion on CTA Echocardiogram completed this morning, will await results BNP 306 (3) Tachycardia: Code(s): R00.0 - Tachycardia, unspecified Status: Acute Assessment and Plan: Persistently mildly tachycardic since admission Improving at this time Does not meet criteria for sepsis. Has minimal leukocytosis (<12.0) and minimally elevated temp (99.8), no tachypnea. Blood cultures are pending. EKG demonstrates sinus tachycardia CTA negative for PE and venous doppler negative for DVT Will check orthostatics Will check TSH Continue to monitor on telemetry (4) History of opioid abuse: Code(s): F11.11 - Opioid abuse, in remission Status: Acute Assessment and Plan: Recently completed rehab and has not used opioids in 4 months Avoid narcotics during admission Subjective Date/time seen: 05/14/23 11:32 Interval history: Babar is feeling well today. He underwent thoracentesis this morning and tolerated this well. States that he has improvement in his shortness of breath at this time. He is able to take deeper breaths. He does have some mild pleuritic chest pain. He denies cough. No wheezing. Denies weakness, dizziness, lightheadedness. Tolerating his diet. Reports no additional concerns. Family present at bedside. Review of Systems Review of Systems: All systems reviewed & are unremarkable except as noted in HPI and below Exam Narrative: General: Well-nourished, well-appearing 22-year-old male, sitting up in bed, comfortable, NARD Neuro: awake, alert and oriented x4, speech clear, no focal neuro deficits noted HEENMT: normocephalic, atraumatic, EOMI, sclerae anicteric Respiratory: Diminished breath sounds of left lung base, otherwise clear to auscultation, no crackles or wheezes, nonlabored breathing Cardio: regular rate, regular rhythm with S1-S2 Abdomen: nondistended, normoactive bowel sounds, soft, nontender to palpation Extremities: no edema, erythema, or tenderness to palpation, DP pulses 2+ bilaterally Skin: no rashes or lesions, warm and dry Psych: appropriate mood and affect, judgment and insight intact Objective Data Vital Signs Vital Signs: Vital Signs - 24 hr 05/13/23 16:42 05/13/23 16:00 05/13/23 21:22 Temperature 99.1 F 99.8 F H Pulse Rate 105 H 119 H Respiratory Rate 18 16 Blood Pressure 117/67 114/63 Pulse Oximetry 98 95 Oxygen Delivery Room Air 05/13/23 20:00 05/14/23 00:00 05/14/23 04:00 Temperature Pulse Rate 119 H 96 101 H Respiratory Rate Blood Pressure Pulse Oximetry Oxygen Delivery 05/14/23 05:36 05/14/23 08:00 Temperature 98.0 F Pulse Rate 108 H 108 H Respiratory Rate 16 16 Blood Pressure 131/75 Pulse Oximetry 94 94 Oxygen Delivery Room Air Intake/Output Intake/Output: Intake & Output 05/11/23 05/12/23 05/13/23 05/14/23 23:59 23:59 23:59 23:59 Intake Total 218 200 Output Total 200 900 Balance 18 -700 Meds/Results Medications: Active Medications Generic Name Dose Route Start Last Admin Trade Name Freq PRN Reason Stop Dose Admin Acetaminophen 650 mg 05/13/23 16:30
--- NOTE | 2023-05-14 12:16 | PHAR ---
HOME MED: VYVANSE (LISDEXAMPHETAMINE) 50 MG CAPSULES, TAKE 1 CAPSULE BY MOUTH DAILY, VERIFIED IN PHARMACY. DRUG NAME: VYVANSE INGREDIENTS: LISDEXAMFETAMINE DIMESYLATE -- 50 MG RELATED DOCUMENTS: DRUGDEX EVALUATIONS - LISDEXAMFETAMINE COLOR: WHITE , BLUE IMPRINT: [id number] 50MG FORM: ORAL CAPSULE
[2023-05-14 13:55] LABS: Appearance Pleural Fluid Cloudy (Clear); Color Pleural Fluid Yellow (Colorless); Pleural fluid source Pleural fluid
[2023-05-14 13:56] LABS: Lymphocytes Pleural Fluid 30 %; Macrophages Pleural Fluid 9 %; Mesothelial Cells Pleural Flui 9 %; Monocytes Pleural Fluid 12 %; Neutrophils Pleural Fluid 40 % (0-25); Nucleated Cell Pleural Fluid 7406 /uL (0-1000); RBC Pleural Fluid 2000 /uL (0-0)
[2023-05-14] MEDS: QUEtiapine FUMARATE 100 MG TABLET PO (20:05)
[2023-05-15] VITALS (8 sets, daily range): BP systolic 103–111; BP diastolic 65–91; PULSE 86–122; RESP 16–18; TEMP 36.5–37.1; O2SAT 96–98
[2023-05-15] MEDS: AMPICILLIN SULB 3 GM/NS 100 ML 3 GM/100 ML VIAL IVPB ×4 (04:55→23:29)
[2023-05-15] MEDS: ACETAMINOPHEN 325 MG TABLET 650 MG PO ×3 (04:55→23:29)
[2023-05-15 06:34] LABS: Hematocrit 37.5 % (42.0-52.0); Hemoglobin 12.7 g/dL (14.0-18.0); Mean Corpuscular HGB Conc 33.9 g/dl (32-36); Mean Corpuscular Hemoglobin 27.6 pg (26-34); Mean Corpuscular Volume 81.5 fl (80-100); Mean Platelet Volume 8.7 fl (7.4-10.4); Platelet Count Result 381 k/mm3 (150-375); White Blood Count 12.6 K/mm3 (4.5-10.0)
[2023-05-15 07:38] LABS: Anion Gap 6 mmol/L (8-16); Blood Urea Nitrogen 12 mg/dL (9-20); CRP 18.2 mg/dL (<1.0); Calcium 8.9 mg/dL (8.4-10.2); Carbon Dioxide 27 mmol/L (22-30); Chloride 103 mmol/L (98-107); Estimated CRCL calculation 140 ml/min; Estimated Glomerular Filt Rate > 60; Glucose 109 mg/dL (65-110); Potassium 3.7 mmol/L (3.4-5.0); Sodium 136 mmol/L (137-145)
--- NOTE | 2023-05-15 08:10 | PC.NURSE ---
To radiology per wheelchair for chest x-ray.
--- NOTE | 2023-05-15 08:18 | PC.NURSE ---
Returned form Radiology per wheelchair.
[2023-05-15] MEDS: busPIRone HCL 5 MG TABLET 15 MG PO ×2 (08:30→19:58)
[2023-05-15] MEDS: ESCITALOPRAM OXALATE 5 MG TABLET 15 MG PO (08:31)
[2023-05-15] MEDS: PANTOPRAZOLE 40 MG TABLET PO (08:31)
--- NOTE | 2023-05-15 13:36 | PM.IMPN ---
Progress Note: A&P Assessment and Plan (1) Pleural effusion on left: Code(s): J90 - Pleural effusion, not elsewhere classified Status: Inactive Assessment and Plan: CTA shows small right and moderate left pleural effusion thoracentesis ring with drainage of 900 mL of yellow fluid on 05/14/2023 Fluid analysis and lab studies are pending He is maintaining adequate oxygen saturations on room air and symptoms have improved continue Unasyn IV for possible infectious process Repeat CXR reveals: Small bilateral pleural effusions, opacities in bilateral lower lungs atelectasis/PNA Will consider pulmonology consultation based on pleural fluid analysis (2) Pericardial effusion: Code(s): I31.39 - Other pericardial effusion (noninflammatory) Status: Acute Assessment and Plan: Small pericardial effusion on CTA Echocardiogram completed reveals unremarkable 2D/Doppler echocardiogram, exam with no evidence of this. (3) Tachycardia: Code(s): R00.0 - Tachycardia, unspecified Status: Acute Assessment and Plan: Persistently mildly tachycardic since admission Improving at this time Does not meet criteria for sepsis. Has minimal leukocytosis (<12.0) and minimally elevated temp (99.8), no tachypnea. Blood cultures are pending. EKG demonstrates sinus tachycardia CTA negative for PE and venous Doppler negative for DVT Patient takes Vyvanse I suspect tachycardia is related to medication use (4) History of opioid abuse: Code(s): F11.11 - Opioid abuse, in remission Status: Acute Assessment and Plan: Recently completed rehab and has not used opioids in 4 months continue to avoid narcotics during admission Subjective Date/time seen: 05/15/23 13:36 Interval history: Interval Hx: Assumed care for patient 05/15/2023 -patient seen this a.m. he is resting with eyes open denies any complaints or overnight events. He he reports mild continued pleuritic chest pain. He denies any weakness, dizziness lightheadedness, cough fever chills at this time. He denies any nausea vomiting. Patient had thoracentesis yesterday morning, his WBC is 12.6, pleural effusion diagnostic studies still pending. Review of Systems Review of Systems: All systems reviewed & are unremarkable except as noted in HPI and below Exam Narrative: General: Well-nourished, well-appearing 22-year-old male, sitting up in bed, comfortable, NARD Neuro: awake, alert and oriented x4, speech clear, no focal neuro deficits noted HEENMT: normocephalic, atraumatic, EOMI, sclerae anicteric Respiratory: lungs clear to auscultation, no crackles or wheezes, nonlabored breathing Cardio: regular rate, regular rhythm with S1-S2 Abdomen: nondistended, normoactive bowel sounds, soft, nontender to palpation Extremities: no edema, erythema, or tenderness to palpation, DP pulses 2+ bilaterally Skin: no rashes or lesions, warm and dry Psych: appropriate mood and affect, judgment and insight intact Objective Data Vital Signs Vital Signs: Vital Signs - 24 hr 05/14/23 14:00 05/14/23 15:48 05/14/23 15:48 Temperature 98.1 F Pulse Rate 112 H Respiratory Rate 16 Blood Pressure 110/67 105/64 104/65 Pulse Oximetry 96 Oxygen Delivery 05/14/23 16:00 05/14/23 19:40 05/14/23 20:00 Temperature 97.1 F L Pulse Rate 108 H 107 H 115 H Respiratory Rate 18 Blood Pressure 131/81 Pulse Oximetry 95 Oxygen Delivery 05/15/23 04:38 05/15/23 00:00 05/15/23 04:00 Temperature 98.8 F Pulse Rate 105 H 86 122 H Respiratory Rate 16 Blood Pressure 103/91 H Pulse Oximetry 97 Oxygen Delivery 05/15/23 08:00 05/15/23 08:00 05/15/23 12:00 Temperature Pulse Rate 86 113 H Respiratory Rate Blood Pressure Pulse Oximetry Oxygen Delivery Room Air Intake/Output Intake/Output: Intake & Output 05/12/23 05/13/23 05/14/23 05/15/23 23:59 23:59 23:59 23:59
[2023-05-15] MEDS: QUEtiapine FUMARATE 100 MG TABLET PO (19:58)
[2023-05-16] VITALS (8 sets, daily range): BP systolic 100–125; BP diastolic 65–74; PULSE 89–111; RESP 16–20; TEMP 35.9–36.4; O2SAT 96–99
[2023-05-16] MEDS: AMPICILLIN SULB 3 GM/NS 100 ML 3 GM/100 ML VIAL IVPB (05:13)
[2023-05-16] MEDS: busPIRone HCL 5 MG TABLET 15 MG PO ×2 (08:47→20:07)
[2023-05-16] MEDS: PANTOPRAZOLE 40 MG TABLET PO (08:47)
[2023-05-16] MEDS: ESCITALOPRAM OXALATE 5 MG TABLET 15 MG PO (08:47)
[2023-05-16 08:50] LABS: Basophils Absolute Auto 0.1 K/mm3 (0.0-0.1); Basophils Percent Auto 0.4 % (0.2-1.2); Eosinophils Absolute Auto 0.3 K/mm3 (0-0.3); Eosinophils Percent Auto 2.3 % (0-4.4); Hematocrit 39.3 % (42.0-52.0); Hemoglobin 13.2 g/dL (14.0-18.0); Immature Granulocyte Absolute 0.06 K/mm3 (0.00-0.031); Immature Granulocyte Percent A 0.5 % (0-0.5); Lymphocytes Absolute Auto 2.18 K/mm3 (0.9-3.2); Lymphocytes Percent Auto 19.1 % (18.3-44.2); Mean Corpuscular HGB Conc 33.6 g/dl (32-36); Mean Corpuscular Hemoglobin 27.6 pg (26-34); Mean Corpuscular Volume 82.2 fl (80-100); Mean Platelet Volume 8.3 fl (7.4-10.4); Monocytes Absolute Auto 0.8 K/mm3 (0.1-0.6); Monocytes Percent Auto 7.3 % (2.6-8.5); Neutrophils Percent Auto 70.4 % (45.5-73.1); Platelet Count Result 442 k/mm3 (150-375); Red Blood Count 4.78 M/mm3 (4.6-6.20); White Blood Count 11.4 K/mm3 (4.5-10.0)
[2023-05-16 09:02] LABS: Anion Gap 7 mmol/L (8-16); Blood Urea Nitrogen 8 mg/dL (9-20); Calcium 9.3 mg/dL (8.4-10.2); Carbon Dioxide 28 mmol/L (22-30); Chloride 103 mmol/L (98-107); Estimated CRCL calculation 140 ml/min; Estimated Glomerular Filt Rate > 60; Glucose 115 mg/dL (65-110); Potassium 3.8 mmol/L (3.4-5.0); Sodium 138 mmol/L (137-145)
[2023-05-16] MEDS: ACETAMINOPHEN 325 MG TABLET 650 MG PO (12:58)
--- NOTE | 2023-05-16 15:57 | PM.IMPN ---
Progress Note: A&P Assessment and Plan (1) Pleural effusion on left: Code(s): J90 - Pleural effusion, not elsewhere classified Status: Acute Assessment and Plan: CTA shows small right and moderate left pleural effusion thoracentesis ring with drainage of 900 mL of yellow fluid on 05/14/2023 Fluid analysis and lab studies are pending He is maintaining adequate oxygen saturations on room air and symptoms have improved transitioned to PO Augmentin today Repeat CXR reveals: Small bilateral pleural effusions, opacities in bilateral lower lungs atelectasis/PNA Will consider pulmonology consultation based on pleural fluid analysis (2) Pericardial effusion: Code(s): I31.39 - Other pericardial effusion (noninflammatory) Status: Acute Assessment and Plan: Small pericardial effusion on CTA Echocardiogram completed reveals unremarkable 2D/Doppler echocardiogram, exam with no evidence of this. (3) Tachycardia: Code(s): R00.0 - Tachycardia, unspecified Status: Acute Assessment and Plan: Persistently mildly tachycardic since admission Blood cultures are pending. EKG demonstrates sinus tachycardia CTA negative for PE and venous Doppler negative for DVT Patient takes Vyvanse, tachycardia possibly related to medication use (4) History of opioid abuse: Code(s): F11.11 - Opioid abuse, in remission Status: Acute Assessment and Plan: Recently completed rehab and has not used opioids in 4 months continue to avoid narcotics during admission Subjective Date/time seen: 05/16/23 15:57 Interval history: Patient denies any complaints or overnight events. He he reports mild continued pleuritic chest pain. He denies any nausea or vomiting, but admittedly not eating very much. Patient had thoracentesis yesterday morning, reports he is breathing easier since. Transitioned to PO Augmentin pending any additional results in hopes to d/c in the next day or so if condition continues to improve. Review of Systems Review of Systems: All systems reviewed & are unremarkable except as noted in HPI and below Exam Narrative: General: Well-nourished, well-appearing 22-year-old male, sitting up in bed, comfortable, NARD Neuro: awake, alert and oriented x4, speech clear, no focal neuro deficits noted HEENMT: normocephalic, atraumatic, EOMI, sclerae anicteric Respiratory: lungs clear to auscultation, no crackles or wheezes, nonlabored breathing Cardio: regular rate, regular rhythm with S1-S2 Abdomen: nondistended, normoactive bowel sounds, soft, nontender to palpation Extremities: no edema, erythema, or tenderness to palpation, DP pulses 2+ bilaterally Skin: no rashes or lesions, warm and dry Psych: appropriate mood and affect, judgment and insight intact Objective Data Vital Signs Vital Signs: Vital Signs - 24 hr 05/15/23 16:00 05/15/23 20:59 05/16/23 05:43 Temperature 97.7 F 97.6 F Pulse Rate 116 H 107 H 103 H Respiratory Rate 18 16 Blood Pressure 111/72 100/65 Pulse Oximetry 96 96 Oxygen Delivery 05/16/23 00:00 05/16/23 04:00 05/16/23 12:00 Temperature Pulse Rate 97 91 89 Respiratory Rate Blood Pressure Pulse Oximetry Oxygen Delivery 05/16/23 08:00 05/16/23 13:55 Temperature 96.7 F L Pulse Rate 89 111 H Respiratory Rate 16 18 Blood Pressure 125/69 Pulse Oximetry 96 97 Oxygen Delivery Room Air Intake/Output Intake/Output: Intake & Output 05/13/23 05/14/23 05/15/23 05/16/23 23:59 23:59 23:59 23:59 Intake Total 709 148 2920 340 Output Total 200 900 Balance 18 -160 1420 340 Meds/Results Medications: Active Medications Generic Name Dose Route Start Last Admin Trade Name Freq PRN Reason Stop Dose Admin Acetaminophen 650 mg 05/13/23 16:30 05/16/23 12:58 Acetaminophen 325 Mg Tablet PO 650 mg Q4H PRN Administration Headache Amoxicillin/Clavulanate Potassium 1 table
[2023-05-16] MEDS: AMOXICILLIN/CLAVULANATE K 875-125 MG TAB 1 TABLET PO ×2 (17:10→20:07)
[2023-05-16] MEDS: QUEtiapine FUMARATE 100 MG TABLET PO (20:07)
[2023-05-17 06:00] VITALS: BP 113/62; PULSE 96; RESP 18; TEMP 36.5; O2SAT 96
[2023-05-17 06:42] LABS: Basophils Absolute Auto 0.1 K/mm3 (0.0-0.1); Basophils Percent Auto 0.6 % (0.2-1.2); Eosinophils Absolute Auto 0.3 K/mm3 (0-0.3); Eosinophils Percent Auto 3.3 % (0-4.4); Hematocrit 40.9 % (42.0-52.0); Hemoglobin 13.5 g/dL (14.0-18.0); Immature Granulocyte Absolute 0.05 K/mm3 (0.00-0.031); Immature Granulocyte Percent A 0.5 % (0-0.5); Lymphocytes Absolute Auto 2.72 K/mm3 (0.9-3.2); Lymphocytes Percent Auto 27.8 % (18.3-44.2); Mean Corpuscular Hemoglobin 27.3 pg (26-34); Mean Corpuscular Volume 82.6 fl (80-100); Mean Platelet Volume 8.6 fl (7.4-10.4); Monocytes Absolute Auto 0.8 K/mm3 (0.1-0.6); Monocytes Percent Auto 7.8 % (2.6-8.5); Neutrophils Absolute Auto 5.9 K/mm3 (1.3-6.7); Platelet Count Result 519 k/mm3 (150-375); Red Blood Count 4.95 M/mm3 (4.6-6.20); Red Cell Distribution Width 12.1 % (11.5-14.5); White Blood Count 9.8 K/mm3 (4.5-10.0)
[2023-05-17 06:55] LABS: Anion Gap 7 mmol/L (8-16); Blood Urea Nitrogen 10 mg/dL (9-20); Calcium 9.6 mg/dL (8.4-10.2); Carbon Dioxide 31 mmol/L (22-30); Chloride 102 mmol/L (98-107); Estimated CRCL calculation 114 ml/min; Estimated Glomerular Filt Rate > 60; Glucose 95 mg/dL (65-110); Potassium 3.9 mmol/L (3.4-5.0); Sodium 140 mmol/L (137-145)
[2023-05-17] MEDS: ESCITALOPRAM OXALATE 5 MG TABLET 15 MG PO (09:35)
[2023-05-17] MEDS: AMOXICILLIN/CLAVULANATE K 875-125 MG TAB 1 TABLET PO (09:36)
[2023-05-17] MEDS: PANTOPRAZOLE 40 MG TABLET PO (09:36)
[2023-05-17] MEDS: ACETAMINOPHEN 325 MG TABLET 650 MG PO (09:36)
[2023-05-17] MEDS: busPIRone HCL 5 MG TABLET 15 MG PO (09:36)
--- NOTE | 2023-05-17 11:44 | PM.DS ---
DS: Admitting Diagnosis Discharge Date 05/17/23 Admitting Diagnosis difficulty breathing DS: Discharge Diagnosis Discharge Diagnosis (1) Pleural effusion on left: Code(s): J90 - Pleural effusion, not elsewhere classified Status: Acute Assessment and Plan: s/p thoracentesis with drainage of 900 mL of yellow fluid on 05/14/2023 Fluid analysis and lab studies are pending He is maintaining adequate oxygen saturations on room air and symptoms have improved transitioned to PO Augmentin Repeat CXR 05/16 resolved (2) Pericardial effusion: Code(s): I31.39 - Other pericardial effusion (noninflammatory) Status: Acute Assessment and Plan: Small pericardial effusion on CTA Echocardiogram completed reveals unremarkable 2D/Doppler echocardiogram, exam with no evidence of this. (3) Tachycardia: Code(s): R00.0 - Tachycardia, unspecified Status: Resolved Assessment and Plan: Blood cultures are pending. CTA negative for PE and venous Doppler negative for DVT Patient takes Vyvanse, tachycardia possibly related to medication use (4) History of opioid abuse: Code(s): F11.11 - Opioid abuse, in remission Status: Chronic Assessment and Plan: Recently completed rehab and has not used opioids in 4 months continue to avoid narcotics during admission DS: Summary Hospital Course Hospital Course: Patient is a 22-year-old male with PMH of opioid abuse with fentanyl admitted with 1 week of shortness of breath and left upper back pain. Patient has been clean of opioid use for approximately 4 months. He just returned home from a rehab center. Shortly before returning home he began to experience shortness of breath and sharp pain of the left upper back worsened by inspiration which has persisted. At 1 point he may have felt feverish. He denies cough, headache, mental status changes, abdominal pain, nausea or vomiting, diarrhea, weight gain, weight loss, swelling. Evaluation in [facility] demonstrated a leukocytosis, tachycardia, elevated CRP, hypoalbuminemia and a CTA chest demonstrating no PE but small right and moderate size left pleural effusion with a small pericardial effusion. EKG demonstrated voltage criteria for LVH. The underlying etiology of the patient's bilateral pleural effusions greater on the left is unknown. Patient had a therapeutic and diagnostic thoracentesis which brought relief to his symptoms, cultures still pending with no bacterial growth to date. Pleural fluid studies have been entered. Repeat chest x-rays shown improvement and resolved pleural effusion today. Patient received vancomycin ceftriaxone and Flagyl at [facility]. MRSA swab negative. Transitioned from Unasyn to PO Augmentin for d/c with improvement in condition and WBC. Blood cultures still pending. He is stable to return home today. Status at Discharge Functional status at discharge: independent ambulation Overall status at discharge: patient is back to baseline Time Spent with Patient Time attestation: Total time spent providing and/or coordinating discharge services: Exam Narrative: General: Well-nourished, well-appearing 22-year-old male, sitting up in bed, comfortable Neuro: A&O x3, speech clear, no focal neuro deficits HEENMT: normocephalic, atraumatic, EOMI, PERRLA Respiratory: lungs clear to auscultation, no crackles or wheezes, nonlabored breathing Cardio: RRR with S1-S2 Abdomen: nondistended, normoactive bowel sounds, soft, nontender to palpation Extremities: no edema, erythema, or tenderness to palpation, DP pulses 2+ bilaterally Skin: no rashes or lesions, warm and dry Psych: appropriate mood and affect, judgment and insight intact DS: Data Data Completed and Pending Labs on day of discharge: Labs from last 24 hours 05/17/23 06:07 WBC 9.8 RBC 4.95 Hgb 13.5 L Hct 40.9 L MCV 82.6 MCH 27.3 MCHC 33.0 RDW 12.1 Plt Count 519 H MPV 8.6
[2023-05-18 19:52] LABS: Glucose Pleural Fluid 78 mg/dL; LDH Pleural Fluid 1035 U/L
[2023-05-19 09:50] LABS: Albumin Pleural Fluid 2.4 g/dL
[2023-05-20 19:48] LABS: Amylase, Pleural Fluid <10 U/L
== END 2023-05-17 11:35 | disposition home or self-care (01) | DRG 186 ==
PROVIDERS: Physician Assistant; Admitting Provider General Practice; Visit Provider Nurse Practitioner
DX: J90 Pleural effusion, not elsewhere classified (principal); J18.9 Pneumonia, unspecified organism; I31.39 Other pericardial effusion (noninflammatory); R00.0 Tachycardia, unspecified; F11.11 Opioid abuse, in remission
CPT/HCPCS: 32555; 36415; 71046; 80048; 80053; 80307; 82042; 82150; 82945; 83615; 83735; 83986; 84145; 84311; 84443; 85025; 85027; 86140; 87070; 87075; 87205; 89051; 93306; A9270; J0295

== ENCOUNTER 2023-08-19 19:43 | Emergency (ER) | payer OTHER, SELFPAY ==
--- NOTE | ~2023-08-19 | CT_ITS ---
CT abdomen pelvis w con Ordering provider: Kirsten Barr PA-C History: . generalized abd pain, n/v/d . Comparison: August 06, 2019 Technique: CT abdomen with IV and without oral contrast. Radiation reduction technique utilized. DLP is 654.36 mGy. 100 mL Omnipaque 350 was given IV. Findings: VISUALIZED LOWER CHEST: Normal. UPPER ABDOMINAL ORGANS: Liver: Mild fat infiltration. Gallbladder: Normal. Spleen: Normal. Stomach/duodenum: Small sliding hiatus hernia. Pancreas: Normal. Adrenals: Normal. Kidneys: Normal. Urinary bladder: Normal. VISUALIZED BOWEL AND MESENTERY: No evidence of diverticulitis. Normal appendix. The bowel is otherwis e normal. No free air or free fluid. No mesenteric lymphadenopathy. RETROPERITONEUM: Normal aorta. No retroperitoneal lymphadenopathy. MUSCULOSKELETAL: The superficial soft tissues are normal. Normal spine. IMPRESSION: No acute abdominal process. Mild fat infiltration Small sliding hiatus hernia. Reviewed, dictated and finalized at location A.
[2023-08-19 19:56] VITALS: BP 136/99; PULSE 92; RESP 20; TEMP 36.4; O2SAT 100
[2023-08-19 20:20] LABS: Basophils Percent Auto 0.2 % (0.2-1.2); Hematocrit 44.8 % (42.0-52.0); Hemoglobin 15.3 g/dL (14.0-18.0); Immature Granulocyte Absolute 0.04 K/mm3 (0.00-0.031); Immature Granulocyte Percent A 0.3 % (0-0.5); Lymphocytes Absolute Auto 0.92 K/mm3 (0.9-3.2); Lymphocytes Percent Auto 7.7 % (18.3-44.2); Mean Corpuscular HGB Conc 34.2 g/dl (32-36); Mean Corpuscular Hemoglobin 27.7 pg (26-34); Mean Platelet Volume 10.1 fl (7.4-10.4); Monocytes Absolute Auto 0.3 K/mm3 (0.1-0.6); Monocytes Percent Auto 2.6 % (2.6-8.5); Neutrophils Absolute Auto 10.7 K/mm3 (1.3-6.7); Neutrophils Percent Auto 89.2 % (45.5-73.1); Platelet Count Result 336 k/mm3 (150-375); Red Blood Count 5.53 M/mm3 (4.6-6.20); Red Cell Distribution Width 14.2 % (11.5-14.5)
[2023-08-19 20:29] LABS: Alanine Aminotransferase 52 U/L (6-50); Albumin Level 5.1 g/dL (3.5-5.1); Alkaline Phosphatase 118 U/L (38-126); Anion Gap 11 mmol/L (4-12); Aspartate Amino Transferase 47 U/L (17-59); Bilirubin,Total 0.6 mg/dL (0.2-1.3); Blood Urea Nitrogen 12 mg/dL (9-20); Calcium 9.8 mg/dL (8.4-10.2); Carbon Dioxide 25 mmol/L (22-30); Chloride 103 mmol/L (98-107); Estimated CRCL calculation 141 ml/min; Estimated Glomerular Filt Rate > 60; Glucose 148 mg/dL (65-110); Lipase 47 U/L (23-300); Sodium 139 mmol/L (137-145)
[2023-08-19 20:33] LABS: Appearance Urine Turbid (Clear); Bacteria Urine None Seen /hpf; Bilirubin Urine Negative (Negative); Blood Urine Negative (Negative); Color Urine Dark Yellow (Yellow); Glucose Urine UA Negative (Negative); Ketones Urine 1+ mg/dL (Negative); Leukocyte Esterase Ur Negative LEU/UL (Negative); Need Manual Microscopic Reviewed; Nitrate Urine Negative (Negative); Non Pathogenic Casts 0-2; Protein Urine Trace mg/dL (Negative); RBC Urine 0-2 /hpf (0-2); Specific Grav Ur 1.028 (1.001-1.035); Squamous Epithelial Cell Urine None Seen /hpf (Few); Urobilinogen Urine 0.2 mg/dL (<2.0); WBC Urine 0-5 /hpf (0-3)
[2023-08-19 20:35] LABS: Add Urine Microscopic? YES
[2023-08-19 22:00] VITALS: BP 125/62; PULSE 64; RESP 15; O2SAT 99
--- NOTE | 2023-08-19 22:21 | ED.NAVMDI ---
HPI - Nausea/Vomiting/Diarrhea General Chief complaint: Nausea/Vomiting/Diarrhea Stated complaint: n/v/dehydration, opioid withdrawal Time Seen by Provider: 08/19/23 21:35 History of Present Illness HPI Narrative: 23-year-old male with history of ADHD, PTSD, opioid addiction presents to the emergency department with his mother at bedside for nausea, vomiting and abdominal pain that started this morning. Patient states he thinks he is in opioid withdrawal. States he has intermittently been using opioids for multiple years. He most recently was admitted to an inpatient [facility] in December 2022 for 6 weeks and then had outpatient rehab for multiple months after util April of 2023. States approximately 1 month ago he began using p.o. fentanyl again. States he was taking po fentanyl daily but is unsure of the amount. He denies IV drug use. States he stops taking fentanyl 3 days ago. He has reported associated diaphoresis and chills. He denies alcohol use. He is reporting some abdominal pain in the central part of his abdomen and mild diarrhea. He denies dysuria or hematuria, fever, prior abdominal surgeries. Related Data Home Medications Medication Instructions Recorded Confirmed buspirone 10 mg tablet 15 mg PO BID 05/15/20 06/01/23 pantoprazole 40 mg tablet,delayed 40 mg PO DAILY 05/15/20 06/01/23 release (Protonix) hydroxyzine pamoate 50 mg capsule 100 mg PO Q12H 05/13/23 06/01/23 buprenorphine 100 mg/0.5 mL 100 mg subcut MONTHLY 06/01/23 06/01/23 solution,exten.rel.subcutaneous syringe (Sublocade) escitalopram oxalate 20 mg tablet 20 mg PO DAILY 06/01/23 06/01/23 (Lexapro) Allergies Allergy/AdvReac Type Severity Reaction Status Date / Time No Known Allergies Allergy Verified 08/19/23 20:00 Review of Systems Review of Systems: CONSTITUTIONAL: Denies fever, chills, or sweats. EYES: Denies visual changes, redness, or discharge. ENT: Denies rhinorrhea, congestion, sore throat, or otalgia. CARDIOVASCULAR: Denies chest pain, palpitations, or edema. RESPIRATORY: Denies cough or dyspnea. GASTROINTESTINAL: See HPI GENITOURINARY: Denies dysuria or hematuria. SKIN: Denies rash or itching. MUSCULOSKELETAL: Denies back pain, joint pain, or myalgia. NEUROLOGIC: Denies headache, numbness, or weakness. PSYCHIATRIC: Denies anxiety or depression. COUNTS INCLUDE 234 BEDS AT THE [facility] Past Medical History Medical History Anxiety History of opioid abuse Marijuana use PTSD (post-traumatic stress disorder) Tachycardia Family History Family History Father Alcoholism Sibling Alcoholism Depression Social History Social History Smoking status: Current every day smoker Tobacco type: e-cigarettes/vaping Alcohol intake: never Substance use: former Substance use type: former substance user, opiates, painkillers and other Other substance usage details: Fentanyl Last use: 01/13/2023 Do You Feel Safe in your Home?: Yes Lack of Transportation: No Lack of Food: Never True Current Housing: I Have Housing Concerned About Future Housing: No Difficulty Paying Gas/Electric Bills: No Difficulty Paying for Meds: No Currently Unemployed: No Education: Don't Know Difficulty w/ Childcare or Family Care: No Living arrangements: with family Occupation/Education: unemployed Gender identity (if verbalized by the patient): Male Sexual Orientation (if Verbalized by the Patient): Straight or Heterosexual Spiritual care concerns: No Exam Narrative: GENERAL: Well-appearing, well-nourished, and in no acute distress. HEAD: Normocephalic, atraumatic. EYES: PERRLA and EOMI. ENT: Nares clear, no rhinorrhea or epistaxis. Mucous membranes moist. NECK: Supple. CHEST: Clear to auscultation. No respiratory distress. HEART: Regular ra
[2023-08-19] MEDS: SODIUM CHLORIDE 0.9% IV 1,000 ML 999 ML IV CONT (22:41)
[2023-08-19] MEDS: FAMOTIDINE 20 MG/2 ML VIAL IV PUSH (22:41)
[2023-08-19] MEDS: ONDANSETRON INJ 4 MG/2 ML VIAL IV PUSH (22:43)
[2023-08-19 22:59] LABS: Ethanol < 10 mg/dL (<10)
[2023-08-19 23:00] LABS: Lactic Acid Reflex 2.2 mmol/L (0.7-2.0)
[2023-08-19 23:12] LABS: Amphetamine Screen Urine Negative (Negative); Barbiturate Screen Urine Negative (Negative); Benzodiazepines Screen Urine Negative (Negative); Cannabinoid Screen Urine Positive (Negative); Cocaine Screen Urine Negative (Negative); Methadone Screen Urine Negative (Negative); Opiate Screen Urine Negative (Negative); Phencyclidine Screen Urine Negative (Negative)
[2023-08-20 00:27] VITALS: BP 136/84; PULSE 80; RESP 15; O2SAT 98
[2023-08-20 01:41] LABS: Reflex Lactic Acid Yes or No Add Lactic
== END 2023-08-20 00:29 | disposition home or self-care (01) ==
PROVIDERS: Emergency Medicine; Emergency Provider Physician Assistant; PCP Nurse Practitioner Adult Health
DX: F11.23 Opioid dependence with withdrawal (principal); F41.9 Anxiety disorder, unspecified; F43.10 Post-traumatic stress disorder, unspecified; F17.290 Nicotine dependence, other tobacco product, uncomplicated; Z79.899 Other long term (current) drug therapy
CPT/HCPCS: 36415; 74177; 80053; 80307; 81001; 83605; 83690; 85025; 96361; 96374; 96375; 99284; J2405; J7030; Q9967

== ENCOUNTER 2023-10-21 12:42 | Emergency (ER) | payer OTHER, SELFPAY ==
--- NOTE | 2023-10-21 12:48 | ED.GENADULT ---
HPI - General Adult General Chief complaint: Upper Respiratory Infection Stated complaint: Sore Throat/Headache Time Seen by Provider: 10/21/23 12:49 Source: patient, RN notes reviewed and old records reviewed Mode of arrival: ambulatory Limitations: no limitations History of Present Illness HPI narrative: 23-year-old male to [facility] for complaint headache and sore throat for 3 days. Patient reports history of headaches. Patient has not attempted to treat symptoms at home. Patient denies difficulty swallowing, fever, dizziness, ear pain, chills, body aches, GI complaints, shortness of breath , allergies. Patient able to tolerate fluids by mouth. Respirations even and nonlabored. Patient in no acute distress. Related Data Home Medications Medication Instructions Recorded Confirmed buspirone 10 mg tablet 15 mg PO BID 05/15/20 10/21/23 pantoprazole 40 mg tablet,delayed 40 mg PO DAILY 05/15/20 10/21/23 release (Protonix) hydroxyzine pamoate 50 mg capsule 100 mg PO Q12H 05/13/23 10/21/23 buprenorphine 100 mg/0.5 mL 100 mg subcut MONTHLY 06/01/23 10/21/23 solution,exten.rel.subcutaneous syringe (Sublocade) escitalopram oxalate 20 mg tablet 20 mg PO DAILY 06/01/23 10/21/23 (Lexapro) mirtazapine 7.5 mg tablet 7.5 mg PO DAILY 10/13/23 10/21/23 Allergies Allergy/AdvReac Type Severity Reaction Status Date / Time No Known Allergies Allergy Verified 10/21/23 12:57 Review of Systems Review of Systems: All systems reviewed & are unremarkable except as noted in HPI and below Constitutional: Constitutional: Reports as per HPI and Reports headache(s) Eyes: Eyes: Reports no additional eye complaints ENT: Reports as per HPI and Reports sore throat Cardiovascular: Cardiovascular: Reports no additional cardiovascular complaints, Denies chest pain and Denies dyspnea Respiratory: Respiratory: Reports no additional respiratory complaints, Denies cough and Denies dyspnea Musculoskeletal: Musculoskeletal: Reports no additional musculoskeletal complaints Neurologic: Reports system reviewed and no additional complaints, except as documented Psychiatric: Psychiatric: Reports no additional psychiatric complaints PMFSH Past Medical History Medical History Anxiety History of opioid abuse Marijuana use PTSD (post-traumatic stress disorder) Tachycardia Family History Family History Father Alcoholism Sibling Alcoholism Depression Social History Social History Smoking status: Current every day smoker Tobacco type: e-cigarettes/vaping Alcohol intake: never Substance use: former Substance use type: former substance user, opiates, painkillers and other Other substance usage details: Fentanyl Last use: 01/13/2023 Do You Feel Safe in your Home?: Yes Lack of Transportation: No Lack of Food: Never True Current Housing: I Have Housing Concerned About Future Housing: No Difficulty Paying Gas/Electric Bills: No Difficulty Paying for Meds: No Currently Unemployed: No Education: Don't Know Difficulty w/ Childcare or Family Care: No Living arrangements: with family Occupation/Education: unemployed Gender identity (if verbalized by the patient): Male Sexual Orientation (if Verbalized by the Patient): Straight or Heterosexual Spiritual care concerns: No Comments At the time of my signature, I reviewed and agree with the nursing past medical, surgical, social, and family history. There is no relevant family history pertinent to the patient complaint. Exam Const: General: cooperative, healthy appearing, no acute distress, alert, tired appearing and well nourished Nutritional Appearance: well nourished Orientation/consciousness: patient oriented x3 Limitations: no limitations HENMT:
[2023-10-21 12:54] VITALS: BP 137/82; RESP 16; TEMP 36.6; O2SAT 100
[2023-10-21 13:43] LABS: EDSTREPNEGPOS1 Negative
== END 2023-10-21 13:27 | disposition home or self-care (01) ==
PROVIDERS: Emergency Provider Nurse Practitioner Family; PCP Nurse Practitioner Adult Health
DX: B34.9 Viral infection, unspecified (principal); F17.290 Nicotine dependence, other tobacco product, uncomplicated; F41.9 Anxiety disorder, unspecified
CPT/HCPCS: 87081; 87880; 99213; G0463

== ENCOUNTER 2024-08-21 11:15 | Emergency (ER) | payer OTHER, SELFPAY ==
--- NOTE | ~2024-08-21 | XR_ITS ---
EXAM/ PROCEDURE: XR hand RT min 3V - 08/21/2024 15:00 CDT HISTORY: 24 years old Male with post reduction attempt COMPARISON: 08/21/24 TECHNIQUE: Four view(s) FINDINGS/ IMPRESSION: Interval placement of the cast around the 5th midshaft metacarpal fracture with stable alignment. Reviewed, dictated and finalized at location A.
--- NOTE | ~2024-08-21 | XR_ITS ---
EXAM/ PROCEDURE: XR hand RT min 3V - 08/21/2024 13:59 CDT HISTORY: 24 years old Male with 5th metacarpal pain COMPARISON: None available TECHNIQUE: Four view(s) FINDINGS/ IMPRESSION: Displaced transverse fracture of the midshaft of the fifth metacarpal bone with dorsal angulation. Joint spaces are within normal limits Reviewed, dictated and finalized at location A.
[2024-08-21 11:29] VITALS: BP 141/80; PULSE 93; RESP 20; TEMP 36.3; O2SAT 98
--- NOTE | 2024-08-21 13:58 | ED_ITS ---
HPI - Extremity Injury (Upper) General Chief Complaint: Extremity Injury, Upper <Kirsten Barr PA-C - Last Filed: 08/21/24 13:59> Stated Complaint: right hand injury, punched a wall <Kirsten Barr PA-C - Last Filed: 08/21/24 13:59> Time Seen by Provider: 08/21/24 14:20 <Kirsten Barr PA-C - Last Filed: 08/21/24 13:59> Focused HPI: 24-year-old male presents emergency department for right hand pain after punching his car window because he was mad earlier this morning. Patient is reporting pain to his right 5th metacarpal with associated swelling. Denies other injuries. Has been using ice. GENERAL: Well-appearing, well-nourished, and in no acute distress. HEAD: Normocephalic, atraumatic. CHEST: Clear to auscultation. ?No respiratory distress. EXT: Pain and swelling to the right 5th metacarpal. Full extension and flexion of fingers. No tenderness remainder of hand or wrist. No snuffbox tenderness. Cap refill less than 2. Sensation intact. Radial pulse 2 +. HEART: Regular rate and rhythm.? NEURO: ?Alert and oriented x3. Patient screened in triage and initial orders placed.? ?Additional care and disposition to be based upon?diagnostic testing and treatment. <Kirsten Barr PA-C - Last Filed: 08/21/24 13:59> History of Present Illness HPI narrative: As per mse <Joel Bruce III, DO - Last Filed: 08/21/24 21:33> Related Data Home Medications: Home Medications ?Medication ?Instructions ?Recorded ?Confirmed ?Last Taken ?Type buprenorphine 128 mg/0.36 mL 128 mg subcut Q28D 12/20/23 02/13/24 Unknown History solution,ext.rel.subcutaneous syringe (Brixadi Monthly) <BRIAN Braun Last Filed: 08/21/24 13:59> Allergies/Adverse Reactions: Allergies Allergy/AdvReac Type Severity Reaction Status Date / Time No Known Allergies Allergy Verified 10/21/23 12:57 <BRIAN Braun Last Filed: 08/21/24 13:59> Review of Systems Review of Systems: All systems reviewed & are unremarkable except as noted in HPI and below <Joel Bruce III, DO - Last Filed: 08/21/24 21:33> PMFSH Past Medical History Medical History: Medical History Anxiety History of opioid abuse Marijuana use PTSD (post-traumatic stress disorder) Tachycardia <Kirsten Barr PA-C - Last Filed: 08/21/24 13:59> Family History Family History: Family History Father Alcoholism Sibling Alcoholism Depression <Kirsten Barr PA-C - Last Filed: 08/21/24 13:59> Social History Social History: Social History Smoking status: Current every day smoker Tobacco type: e-cigarettes/vaping Alcohol intake: never Substance use: former Substance use type: former substance user, opiates, painkillers and other Other substance usage details: Fentanyl Last use: 01/13/2023 Do You Feel Safe in your Home?: Yes Lack of Transportation: No Lack of Food: Never True Current Housing: I Have Housing Concerned About Future Housing: No Difficulty Paying Gas/Electric Bills: No Difficulty Paying for Meds: No Currently Unemployed: No Education: Don't Know Difficulty w/ Childcare or Family Care: No Living arrangements: with family Occupation/Education: unemployed Gender identity (if verbalized by the patient): Male Sexual Orientation (if Verbalized by the Patient): Straight or Heterosexual Spiritual care concerns: No <Kirsten Barr PA-C - Last Filed: 08/21/24 13:59> Exam Const: General: healthy appearing and no acute distress <Joel Bruce III, DO - Last Filed: 08/21/24 21:33> Nutritional Appearance: well nourished <Joel Bruce III DO - Last Filed: 08/21/24 21:33> Orientation/consciousness: patient oriented x3 <Joel Bruce III DO - Last Filed: 08/21/24 21:33> Limitations: no limitations <Joel Blane Bruce III, DO - Last Filed: 08/21/24 21:33> Chest: Chest palpation & inspection: normal inspection of the chest <Joel Blane Bruce III, DO - Last Filed: 08/21/24 21:33> Resp: Effort & Inspection: normal respiratory effort <Joel Blane Bruce III, DO - Last Filed: 08/21/24 21:33> Auscultation: clear to auscultation bilaterally <Joel Blane Bruce III, DO - Last Filed: 08/21/24 21:33> Cardio: Rate: regular rate <Joel Blane Bruce III, DO - Last Filed: 08/21/24 21:33> Rhythm: regular rhythm <Joel Blane Bruce III, DO - Last Filed: 08/21/24 21:33> GI: GI Palp: Yes Soft to palpation <Joel Blane Bruce III, DO - Last Harry ed: 08/21/24 21:33> Skin: General skin exam: normal color <Joel Blane Bruce III, DO - Last Filed: 08/21/24 21:33> Rashes: no rashes <Joel Blane Bruce III, DO - Last Filed: 08/21/24 21:33> Wounds: no wounds <Joel Blane Bruce III, DO - Last Filed: 08/21/24 21:33> Neuro: General: patient oriented x3, moves all extremities, no meningeal signs and no focal motor deficits <Joel Blane Bruce III, DO - Last Filed: 08/21/24 21:33> Cranial nerves: Yes Nystagmus not present <Joel Blane Bruce III, DO - Last Filed: 08/21/24 21:33> Speech: normal speech <Joel Blane Bruce III, DO - Last Filed: 08/21/24 21:33> Extrem: Other: swolen and tender over right 5th metacarpal no rotation of finger <Joel Blane Bruce III, DO - Last Filed: 08/21/24 21:33> Psych: Mental Status: mental status grossly normal <Joel Blane Bruce III, DO - Last Filed: 08/21/24 21:33> Affect: normal affect <Joel Blane Bruce III, DO - Last Filed: 08/21/24 21:33> Attitude: cooperative <Joelgurjit Arguelles Bruce III, DO - Last Filed: 08/21/24 21:33> Course Vital Signs Vital signs: Vital Signs Temperature 97.4 F L 08/21/24 11:29 Pulse Rate 93 08/21/24 11:29 Respiratory Rate 20 08/21/24 11:29 Blood Pressure 141/80 H 08/21/24 11:29 Pulse Oximetry 98 08/21/24 11:29 Oxygen Delivery Room Air 08/21/24 11:29 Temperature 97.7 F 08/21/24 14:09 Pulse Rate 75 08/21/24 16:04 Respiratory Rate 20 08/21/24 16:04 Blood Pressure 123/72 08/21/24 16:04 Pulse Oximetry 99 08/21/24 16:04 Oxygen Delivery Room Air 08/21/24 11:29 <Kirsten Barr PAMarjorieC - Last Filed: 08/21/24 13:59> Vital Signs Temperature 97.4 F L 08/21/24 11:29 Pulse Rate 93 08/21/24 11:29 Respiratory Rate 20 08/21/24 11:29 Blood Pressure 141/80 H 08/21/24 11:29 Pulse Oximetry 98 08/21/24 11:29 Oxygen Delivery Room Air 08/21/24 11:29 Temperature 97.7 F 08/21/24 14:09 Pulse Rate 75 08/21/24 16:04 Respiratory Rate 20 08/21/24 16:04 Blood Pressure 123/72 08/21/24 16:04 Pulse Oximetry 99 08/21/24 16:04 Oxygen Delivery Room Air 08/21/24 11:29 <Joel Bruce III, DO - Last Filed: 08/21/24 21:33> MDM - Extremity Injury (Upper) MDM Narrative Medical decision making narrative: pt punched car window and has painto right hand x ray shows transverse fx or distal 5th metacarpal. gave a little morhpine and attempted to reduce but repeat x ray did not show much improvement. discussed with Dr Brenner and will see in follow up. <Joel Bruce III, DO - Last Filed: 08/21/24 21:33> Discharge Plan Discharge Clinical Impression: Fracture of fifth metacarpal bone <BRIAN Braun Last Filed: 08/21/24 13:59> Patient Disposition: Home <BRIAN Braun Last Filed: 08/21/24 13:59> Condition: Stable <BRIAN Braun Last Filed: 08/21/24 13:59> Instructions: Antibiotic Form, Boxer Fracture (ED) <BRIAN Braun Last Filed: 08/21/24 13:59> Patient Language: Namibian <BRIAN Braun Last Filed: 08/21/24 13:59> Prescriptions: New hydrocodone-acetaminophen 5-325 mg tablet 1 tablet PO Q6H PRN (Reason: pain) Qty: 10 0RF No Action levalbuterol tartrate 45 mcg/actuation HFA aerosol inhaler 2 inh inhalation Q6H PRN (Reason: shortness of breath) Qty: 15 1RF nicotine 7 mg/24 hr patch 24 hour 1 patch transdermal DAILY Qty: 14 0RF Brixadi 128 mg/0.36 mL solution, extended rel syringe 128 mg subcut Q28D bupropion HCl [Wellbutrin XL] 300 mg tablet extended release 24 hr 300 mg PO QAM Qty: 90 3RF buspirone 30 mg tablet 30 mg PO BID Qty: 180 3RF hydroxyzine HCl 50 mg tablet 50 mg PO BID Qty: 180 0RF mirtazapine 7.5 mg tablet See Rx Instructions .ROUTE .COMPLEX Qty: 90 3RF Dose Instruction: TAKE 1 TABLET BY MOUTH DAILY Rx Instructions: TAKE 1 TABLET BY MOUTH DAILY escitalopram oxalate [Lexapro] 20 mg tablet 20 mg PO DAILY Qty: 90 0RF pantoprazole [Protonix] 40 mg tablet,delayed release (DR/EC) 40 mg PO DAILY Qty: 90 0RF lisdexamfetamine [Vyvanse] 40 mg capsule 40 mg PO DAILY Qty: 30 0RF <BRIAN Braun Last Filed: 08/21/24 13:59> Follow-up/Referrals: jermaine [Other] Shawn Brenner MD [Physician] - Kavitha Lino APRN [Primary Care Provider] - <Kirsten Barr PA-C - Last Filed: 08/21/24 13:59>
[2024-08-21 14:09] VITALS: BP 133/77; PULSE 71; RESP 18; TEMP 36.5; O2SAT 99
[2024-08-21] MEDS: ONDANSETRON HCL ODT 4 MG TABLET PO (14:57)
[2024-08-21] MEDS: MORPHINE SULFATE INJ (*CRX) 10 MG/ML AMP 4 MG IM (14:57)
[2024-08-21 16:04] VITALS: BP 123/72; PULSE 75; RESP 20; O2SAT 99
== END 2024-08-21 16:28 | disposition home or self-care (01) ==
PROVIDERS: Emergency Provider Emergency Medicine; PCP Nurse Practitioner Adult Health
DX: S62.326A Displaced fracture of shaft of fifth metacarpal bone, right hand, initial encounter for closed fracture (principal); F17.290 Nicotine dependence, other tobacco product, uncomplicated; W22.8XXA Striking against or struck by other objects, initial encounter
CPT/HCPCS: 26605; 73130; 99285; A9270; J2270

== ENCOUNTER 2024-11-10 21:09 | Emergency (ER) | payer OTHER, SELFPAY ==
--- OUTSIDE RECORDS SUMMARY | 2024-06-12 09:40 | XMS_ITS ---
Author Organization [facility] Address [address] [place] [address] Care Team Providers Care Manager E Learning Name Role Phone Carmen Reyna Primary Care Provider REASON FOR VISIT MAT F/U Social History Sex Assigned At : Social History Observation Description Sex Assigned At Male Encounters Encounter Location Date Provider Diagnosis [address] [place] [address] 06/12/2024 Carmen Reyna Plan Of Treatment No Information Progress Notes * SANTIBabarDOB: [birth year] (24 yo M)Acc No.[id number]:06/12/2024 UNLOCKED PROGRESS NOTE Patient: Babar GROSSMAN Provider: OSWALDO Calloway, [employer] WORKING SUPERVISOR, [employer] :2000 A ge:24 Y S ex:Male Date:06/12/2024 Address:[address] [facility] Subjective: * Chief Complaints: * 1 . MAT F/U. * Medical History: Objective: * Vitals: Assessment: Plan: * Treatment: * Care Plan Details* * Electronic signature of Crystal Reyna APRN, [id number] on 11/10/2024 at 09:12 PM CDT Sign off status: Pending * Provider: OSWALDO Calloway, [employer] WORKING SUPERVISOR, [employer] Date: 0 06/12/2024 Generated for Marie lacy/Aida/Raz on: 0 11/10/2024 09:12 PM CDT
--- NOTE | ~2024-11-10 | XR_ITS ---
EXAMINATION: XR hand RT min 3V, 11/10/2024 21:43 CDT HISTORY: swelling, pain/ BROKE 5TH METACARPAL IN JULY OF THIS YEAR COMPARISON: No comparisons available. Findings: Nonunited fracture of the mid fifth metacarpal. No significant degenerative changes. Soft tissue swelling. Impression: Fifth metacarpal fracture Reviewed, dictated and finalized at location A. Impression: Fifth metacarpal fracture
--- OUTSIDE RECORDS SUMMARY | 2024-11-10 21:12 | XMS_ITS | Patient Health Record ---
Author Organization [facility] Address [address] [place] [address] Care Team Providers Care Echo Vascular Tech Name Role Phone Carmen Reyna Primary Care Provider [phone] Uvaldo Vazquez Unavailable [phone] Guerita Paula Unavailable [phone] Allergies No Known Allergies Results Component Value Reference Range Notes 12 Panel Urine Drug Screen Reviewed date:01/11/2024 04:13:29 PM Interpretation: Performing Lab: Notes/Report: THC POS SIGIFREDO neg MOP (OPI) neg AMP neg MET neg BAR neg BZO neg MDMA neg MTD neg OXY neg PCP neg BUP POS 12 Panel Urine Drug Screen Reviewed date:04/06/2024 04:07:30 PM Interpretation: Performing Lab: Notes/Report: THC pos SIGIFREDO neg MOP (OPI) pos AMP pos MET neg BAR neg BZO neg MDMA neg MTD neg OXY neg PCP neg BUP pos 12 Panel Urine Drug Screen Reviewed date:12/14/2023 04:13:32 PM Interpretation: Performing Lab: Notes/Report: THC neg SIGIFREDO neg MOP (OPI) neg AMP POS MET neg BAR neg BZO neg MDMA neg MTD neg OXY neg PCP neg BUP POS 12 Panel Urine Drug Screen Reviewed date:06/27/2024 05:49:41 PM Interpretation: Performing Lab: Notes/Report: THC POS SIGIFREDO neg MOP (OPI) neg AMP POS MET neg BAR neg BZO neg MDMA neg MTD neg OXY neg PCP neg BUP POS 12 Panel Urine Drug Screen Reviewed date:05/11/2024 10:50:49 AM Interpretation: Performing Lab: Notes/Report: THC POS SIGIFREDO neg MOP (OPI) neg AMP POS MET neg BAR neg BZO neg MDMA neg MTD neg OXY neg PCP neg BUP POS 12 Panel Urine Drug Screen Reviewed date:02/15/2024 03:20:13 PM Interpretation: Performing Lab: Notes/Report: THC POS SIGIFREDO neg MOP (OPI) neg AMP neg MET neg BAR neg BZO neg MDMA neg MTD neg OXY neg PCP neg BUP POS 12 Panel Urine Drug Screen Reviewed date:11/16/2023 03:53:29 PM Interpretation: Performing Lab: Notes/Report: THC neg SIGIFREDO neg MOP (OPI) neg AMP POS MET neg BAR neg BZO neg MDMA neg MTD neg OXY neg PCP neg BUP POS Reason For Referral No Information Medications Medication SIG (Take, Route, Frequency, Duration) Notes Start Date End Date Status Vyvanse 50 MG 1 capsule in the morning Orally Once a day Active Pantoprazole Sodium 40 MG TAKE 1 TABLET BY MOUTH EVERY DAY Oral; Duration: 90 Days Active hydrOXYzine Pamoate 50 MG Oral; Duration: 10 Days Active Mirtazapine 7.5 MG Oral; Duration: 30 Days Active Senna 8.6 MG 2 tablets at bedtime as needed Orally Once a day; Duration: 30 days 10/19/2023 Active Buprenorphine HCl-Naloxone HCl 4-[address] 1 FILM UNDER THE TONGUE AND ALLOW TO DISSOLVE ONCE A DAY; Duration: 7 06/19/2024 Active Brixadi 128 MG/0.36ML 0.36 mL Subcutaneo us every 28 days for [facility] 06/12/2024 Active busPIRone HCl 30 MG 1 tablet Orally Twice a day Active Lexapro 20 MG 1 tablet Orally Once a day Active Social History Tobacco Use: Social History Observation Description Date Details (start date - stop date) Unknown Sex Assigned At : Social History Observation Description Sex Assigned At Male Tobacco Control (Standard) Question Answer Notes Tobacco use: Uses tobacco in other forms Additional Findings: Tobacco user e-cigarette Problems Problem Type SNOMED Code ICD Code Onset Dates Problem Status W/U Status Risk Notes Problem Obesity (141736694) Obesity (BMI 30-39.9) (E66.9) Active confirmed Problem Opioid use disorder (8675119734) Opioid use disorder (F11.99) Active confirmed Problem Tobacco user (826499940) Nicotine dependence with current use (F17.200) Active confirmed Vital Signs Heart Rate 96 /min 06/19/2024 Temperature 98.8 degrees Fahrenheit 06/19/2024 Respiratory Rate 16 /min 06/19/2024 Blood pressure diastolic 80 mm Hg 06/19/2024 Oximetry 97 % 06/19/2024 Height 68 in 06/19/2024 Blood pressure systolic 112 mm Hg 06/19/2024 Weight 226.6 lbs 06/19/2024 BMI 34.45 kg/m2 06/19/2024 Encounters Encounter Location Date Provider Diagnosis [facility] [place] [address] 11/16/2023 Jenia Heavens Opioid use disorder F11.99 ; Obesity (BMI 30-39.9) E66.9 and Tobacco use disorder F17.[address] [address] [place] [address] 12/14/2023 Jenia Heavens Opioid use disorder F11.99 ; Obesity (BMI 30-39.9) E66.9 and Tobacco use disorder F17.200 [address] [address] [address] [facility] [place] [address] 01/11/2024 Uvaldo Vazquez Opioid use disorder F11.99 ; Obesity (BMI 30-39.9) E66.9 ; Nutritional counseling Z71.3 and Tobacco use disorder F17.200 [address] [address] [place] [address] 02/15/2024 Jenia Heavens Opioid use disorder F11.99 ; Obesity (BMI 30-39.9) E66.9 and Tobacco use disorder F17.200 [address] [address] [place] [address] 04/06/2024 Jenia Heavens Opioid use disorder F11.99 ; Obesity (BMI 30-39.9) E66.9 and Tobacco use disorder F17.200 [address] [address] [place] [address] 05/10/2024 Jenia Heavens Opioid use disorder F11.99 ; Obesity (BMI 30-39.9) E66.9 and Tobacco use disorder F17.200 [address] [address] [place] [address] 06/19/2024 Carmen Reyna Opioid use disorder F11.99 ; Obesity (BMI 30-39.9) E66.9 and Nicotine dependence with current use F17.200 [facility] [address] [place] [address] 11/15/2023 Carmen Reyna [facility] [address] [place] [address] 12/09/2023 Guerita Chai Opioid use disorder F11.[address] [place] [address] 01/11/2024 Carmen Reyna [facility] [place] [address] 01/11/2024 Guerita Paula Opioid use disorder F11.[address] [facility] [place] [address] 02/07/2024 Carmen Reyna [facility] [place] [address] 02/09/2024 Carmen Reyna Opioid use disorder F11.99 [address] [address] [place] [address] 06/12/2024 Carmen Reyna Opioid use disorder F11.99 [address] [address] [place] [address] 07/16/2024 Carmen Reyna Assessments Encounter Date Diagnosis (ICD Code) Assessment Notes Treatment Notes Treatment Clinical Notes Section Notes 11/16/2023 Opioid use disorder (ICD-10 - F11.99) 06/19/2024 Obesity (BMI 30-39.9) (ICD-10 - E66.9) 06/19/2024 Opioid use disorder (ICD-10 - F11.99) 06/12/2024 Opioid use disorder (ICD-10 - F11.99) 05/10/2024 Opioid use disorder (ICD-10 - F11.99) 04/06/2024 Opioid use disorder (ICD-10 - F11.99) 02/15/2024 Obesity (BMI 30-39.9) (ICD-10 - E66.9) 02/15/2024 Opioid use disorder (ICD-10 - F11.99) 02/09/2024 Opioid use disorder (ICD-10 - F11.99) 01/11/2024 Obesity (BMI 30-39.9) (ICD-10 - E66.9) 01/11/2024 Opioid use disorder (ICD-10 - F11.99) 01/11/2024 Opioid use disorder (ICD-10 - F11.99) 12/14/2023 Opioid use disorder (ICD-10 - F11.99) 12/09/2023 Opioid use disorder (ICD-10 - F11.99) 01/11/2024 Nutritional counseling (ICD-10 - Z71.3) 12/14/2023 Obesity (BMI 30-39.9) (ICD-10 - E66.9) 02/15/2024 Tobacco use disorder (ICD-10 - F17.200) 04/06/2024 Obesity (BMI 30-39.9) (ICD-10 - E66.9) 05/10/2024 Obesity (BMI 30-39.9) (ICD-10 - E66.9) 11/16/2023 Obesity (BMI 30-39.9) (ICD-10 - E66.9) 06/19/2024 Nicotine dependence with current use (ICD-10 - F17.200) 11/16/2023 Tobacco use disorder (ICD-10 - F17.200) 05/10/2024 Tobacco use disorder (ICD-10 - F17.200) 04/06/2024 Tobacco use disorder (ICD-10 - F17.200) 12/14/2023 Tobacco use disorder (ICD-10 - F17.200) 01/11/2024 Tobacco use disorder (ICD-10 - F17.200) 11/16/2023 Other Discussed medication side effects, adverse effects, risks, benefits, as well as interactions. Encouraged non-use of opioids. Has naloxone. Recommended participation in recovery groups/counseling services. May contact office with questions or concerns. 12/14/2023 Other Client agrees to take medication as prescribed. Discussed medication side effects, adverse effects, risks, benefits, as well as interactions. Encouraged non-use of opioids. Has naloxone. Recommended participation in recovery groups/counseling services. May contact office with questions or concerns. 02/15/2024 Other Client agrees to take medication as prescribed. Discussed medication side effects, adverse effects, risks, benefits, as well as interactions. Encouraged non-use of opioids. Has naloxone. Recommended participation in recovery groups/counseling services. May contact office with questions or concerns. 04/06/2024 Other Discussed medication side effects, adverse effects, risks, benefits, as well as interactions. Encouraged non-use of opioids. Has naloxone. Recommended participation in recovery groups/counseling services. Agrees to contact office with questions or concerns. 05/10/2024 Other Discussed medication side effects, adverse effects, risks, benefits, as well as interactions. Encouraged non-use of opioids. Has naloxone. Recommended participation in recovery groups and/or counseling services. May contact office with questions or concerns. Patient may self-administer their own medications or may self-administer their own oral medications per Palmer Protocol. 06/19/2024 Other Discussed medication side effects, adverse effects, risks, benefits, as well as interactions. Encouraged non-use of opioids. Has naloxone. Recommended participation in recovery groups and/or counseling services. May contact office with questions or concerns. Patient may self-administer their own medications or may self-administer their own oral medications per [facility] Protocol. Plan Of Treatment No Information Insurance Providers Payer Name Payer Address Payer Phone Subscriber Number Group Number Insured Name Patient Relationship to Insured Coverage Start Date Coverage End Date [employer] [address] [place] [address] [phone] [id number] Babar Monsivais Self - patient is the insured 4 4 Medications Administered Medication Instructions Date of Administration Dosage Notes Brixadi (Weekly) 11/16/2023 128 mg Pt. tole rated well. No questions/concerns at this time. Brixadi (Weekly) 12/14/2023 128 mg Danyelle Sahu 12/14/2023 04:15 PM CDT >Given LLQ, tolerated well. Brixadi (Weekly) 01/11/2024 128 mg Danyelle Sahu 01/11/2024 04:18 PM [employer] >Given SubQ RLQ, tolerated well. [facility]#[id number]. Brixadi (Weekly) 02/15/2024 128 mg Sahu, Danyelle D 02/15/2024 03:25 PM [employer] >Given Sub q LLQ, tolerated well. [facility] # [id number] Brixadi (Weekly) 04/06/2024 128 mg Sahu, Danyelle D 04/06/2024 04:15 PM [employer] >Given Subq RLQ, tolerated well. [facility]# [id number]. Brixadi (Weekly) 05/10/2024 128 mg Pt. tole rated well. No questions/concerns at this time. Pt. given a reminder slip with next injection date. Brixadi (Weekly) 06/19/2024 128 mg Sahu, Danyelle D 06/19/2024 04:45 PM CDT >Given Subq RLQ, tolerated well. [facility]# [id number]. Sublocade 07/07/2023 300 mg Pt. tolerated well. No questions or concerns at this time. Sublocade 08/04/2023 300 mg Sahu, Kerry e D 08/04/2023 02:20 PM CDT >Given LLQ Sub Q, tolerated well. Sublocade 09/22/2023 300 mg Sahu, Kerry e D 09/22/2023 10:35 AM CDT >Given RLQ, tolerated well. Sublocade 10/19/2023 300 mg Sahu, Kerry e D 10/19/2023 03:45 PM CDT >Given LLQ subq, tolerated well. Medical (General) History Hospitalization History Reason Date(Month/Year) [facility]
--- OUTSIDE RECORDS SUMMARY | 2024-11-10 21:12 | XMS_ITS | Clinical Summary ---
Author Organization [facility] Address [address] [place] [address] Phone Care Team Providers Care Hole Digger Truck Driver Name Role Phone [place] Kavitha DANA Primary Care Provider [phone] Allergies No known active allergies Medications sertraline (ZOLOFT) 100 mg tablet Take 100 mg by mouth daily. Active busPIRone (BUSPAR) 10 mg tablet Take 10 mg by mouth 3 times daily. Active raNITIdine (ZANTAC) 150 mg tablet Take 150 mg by mouth 2 times daily. Active ARIPiprazole (ABILIFY) 5 mg tablet Take 5 mg by mouth daily. Active Social History Tobacco Use Types Packs/Day Years Used Date Smoking Tobacco: Never Smokeless Tobacco: Never Alcohol Use Standard Drinks/Week Comments Never 0 (1 standard drink = 0.6 oz pur e alcohol) Sex and Gender Information Value Date Recorded Sex Assigned at Not on file Legal Sex Male 9:23 AM CDT Gender Identity Not on file Sexual Orientation Not on file Last Filed Vital Signs Vital Sign Reading Time Taken Comments Blood Pressure 121/68 2019 1:11 PM CDT Pulse 84 2019 1:11 PM CDT Temperature 36.2 C (97.1 F) 2019 9:24 AM CDT Respiratory Rate 18 2019 1:11 PM CDT Oxygen Saturation 98% 2019 1:11 PM CDT Inhaled Oxygen Concentration - - Weight 67.1 kg (147 lb 14.9 oz) 2019 9:24 AM CDT Height - - Body Mass Index - - Plan of Treatment Health Maintenance Due Date Last Done Comments DTAP/TDAP/TD VACCINES (7 - T d or Tdap) 09/15/2021 09/16/2011, 06/23/2005, 08/27/2002, Additional history exists INFLUENZA VACCINE (#1) 2024 4, 11/25/2012, 11/21/2010, Additional history exists HEPATITIS B VACCINES Completed 08/27/2002, 2001, 2001 HPV VACCINES Completed 04/19/2013, 10/29, 10/10/2012 [facility] Care Teams Hole Digger Truck Driver Relationship Specialty Start Date End Date Kavitha Lino ANP [address] [phone] PCP - General Nurse Practitioner Adult Health 05/29/19
--- OUTSIDE RECORDS SUMMARY | 2024-11-10 21:12 | XMS_ITS | Clinical Summary ---
Author Organization [facility] Address [address] [place] [address] Care Team Providers Care Loan Coordinator Name Role Phone Kavitha Lino NP Primary Care Provider [phone] Allergies No known active allergies Medications pantoprazole DR (PROTONIX) 40 mg EC tablet Take 1 tablet (40 mg total) by mouth daily Active albuterol HFA (PROVENTIL HFA,VENTOLIN HFA,PROAIR HFA) 90 mcg/actuation inhaler 2 puffs every 4 (four) hours as needed 4 Active hydrOXYzine (VISTARIL) 50 mg capsule Take 2 capsules (100 mg total) by mouth 2 (two) times a day 1 TABLET TWO TIMES A DAY Active escitalopram (LEXAPRO) 20 mg tablet Take 1 tablet (20 mg total) by mouth daily 4 Active QUEtiapine (SEROquel) 50 mg tablet Take 1 tablet (50 mg total) by mouth nightly 4 Active Additional Information Patient taking differently:50 mg oralAs needed, Reported on 07/26/2023 acetaminophen 500 mg capsuleIndicati ons:Fever,Pain Take 2 capsules (1,000 mg total) by mouth every 6 (six) hours as needed for pain 240 tablet 4 Active colchicine (COLCRYS) 0.6 mg tablet Take 1 tablet (0.6 mg total) by mouth 2 (two) times a day 120 tablet 4 Active ibuprofen (ADVIL,MOTRIN) 800 mg tablet Take 1 tablet (800 mg total) by mouth 2 (two) times a day 42 tablet 4 Active buPROPion XL (WELLBUTRIN XL) 300 mg 24 hr tablet Take 1 tablet (300 mg total) by mouth every morning 5 Active gabapentin (NEURONTIN) 100 mg capsule Take 1 capsule (100 mg total) by mouth nightly 5 Active mirtazapine (REMERON) 7.5 mg tablet Take 1 tablet (7.5 mg total) by mouth daily 5 Active Brixadi 128 mg/0.36 mL solution, extended rel syringe 5 Active busPIRone (BUSPAR) 30 mg tablet Take 1 tablet (30 mg total) by mouth 2 (two) times a day 5 Active lisdexamfetamin e (VYVANSE) 40 mg capsule Take 1 capsule (40 mg total) by mouth daily 5 Active Active Problems Problem Noted Date Diagnosed Date Juvenile osteochondrosis of lower extremity, exc luding foot 08/27/2024 Pleural effusion, not elsewhere classified 07/25 Serositis 07/01/2023 Assessment & Plan (07/01/2023 9:45 AM CDT): 23 year old with recurrent pleural effusions and pericardial effusion presenting with pleuritic chest pain over several days. Pleural fluid studies exudative with nucleated cellularity. Pleural effusion present since at least 07/2022, episodes of pleuritic chest pain intermittent over ~18 months. Initial workup revealing significantly elevated acute phase reactants with negative SANDRINE, NICO, RF, CCP, ANCA. Prior thoracentesis also consistent with exudate. Favored to reflect polyserositis of uncertain etiology. Possibly secondary to vaping exposure. Appreciate cardiology mgmt of pericarditis Recommended avoiding vaping Pulmonary will continue to follow Pericarditis 06/28/2023 Atypical chest pain 09/22/2022 Thrombocytosis 08/17/2022 Gastroesophageal reflux disease without esophagi tis 08/04/2022 Weight gain 08/04/2022 Atypical chest pain 08/04/2022 Pleural effusion 08/04/2022 Drug abuse 11/24/2021 History of drug abuse 06/04/2019 Grief 08/23/2018 Mixed anxiety and depressive disorder 08/23/2018 Concussion 06/29/2017 Acute pharyngitis 02/04/2012 Overview (08/27/2024): 02/04/12 Streptococcal pharyngitis 2009 Overview (08/27/2024): 05/29/09,04/13/12 Encounters Date Type Department Care Team Description 08/27/2024 7:04 PM CDT - 08/27/2024 11:59 PM CDT Hospital Encounter [facility]) [address] [place] [address] Discharge Disposition: Discharge to home or self care 08/27/2024 11:55 AM CDT Therapy [facility] Medicine Occupational Therapy [address] [place] [address] Advanced Medicine 6th [place] [address] [place] [address] Mine Omalley OT Closed displaced fracture of shaft of fifth metacarpal bone of right hand with routine healing, subsequent encounter (Primary Dx); Fracture, boxers, open, initial encounter 08/27/2024 11:13 AM CDT - 08/27/2024 11:59 PM CDT Hospital Encounter [facility] ([facility]) [address] [place] [address] Discharge Disposition: Discharge to home or self care 08/27/2024 10:50 AM CDT Office Visit [facility] Medicine Orthopaedic Surgery [address] [place] [address] Medicine 6th [place] [address] [place] [address] Chuck Salgado MD Fracture, boxers, open, initial encounter 08/27/2024 Plan of Care Documentation [facility] Medicine Occupational Therapy [address] [place] [address] 6th [place] [address] [place] [address] from Last 3 Months Surgical History Surgery Date Site/Laterality Comments NO PAST SURGERIES Medical History Medical History Date Comments Depression Anxiety PTSD (post-traumatic stress disorder) Drug abuse Adhd Family History Medical History Relation Name Comments Suicide Completion Father No Known Problems Mother Relation Name Status Comments Father Mother Alive Social History Tobacco Use Types Packs/Day Years Used Date Smoking Tobacco: Never Smokeless Tobacco: Never Tobacco Cessation:Counseling Given: Not Answered Personal Safety Answer Date Recorded Have you ever been in or are you currently in a harmful physical or emotional relationship or is someone making you feel afraid or unsafe? Denies 06/28/2023 Sex and Gender Information Value Date Recorded Sex Assigned at Not on file Legal Sex Male 9:24 PM CDT Gender Identity Not on file Sexual Orientation Not on file Obstetrics History Last Filed Vital Signs Vital Sign Reading Time Taken Comments Blood Pressure 108/70 07/26/2023 10:11 AM CDT Pulse 67 07/26/2023 10:11 AM CDT Temperature 36.2 C (97.2 F) 07/26/2023 10:11 AM CDT Respiratory Rate 18 07/26/2023 10:11 AM CDT Oxygen Saturation 98% 07/26/2023 10:11 AM CDT Inhaled Oxygen Concentration - - Weight 99.8 kg (220 lb) 07/26/2023 10:11 AM CDT Height 171.5 cm (5' 7.5) 07/26/2023 10:11 AM CD T Body Mass Index 33.95 07/26/2023 10:11 AM CDT Plan of Treatment Health Maintenance Due Date Last Done Comments Depression Screening 2001 Meningococcal B Vaccine (1 of 2 - Standard) 2017 Regular Well Visit/Exam 18-64 05/30/2019 DTaP/Tdap/Td Vaccine (7 - Td or Tdap) 09/15/2021 09/16/2011, 06/23/2005, 08/27/2002, Additional history exists Covid-19 Vaccine ( season) 2024 02/27/2021, 06/15/2020, 05/27/2020 Influenza Vaccine (#1) 2024 , 12/02/2019, 11/15/2018, Additional history exists Hepatitis B Screening Completed 08/27/2002 , 2001, 2001 Varicella Vaccines Completed 08/16/2006, 06/04/2002 HPV Vaccines Completed 04/19/2013, 10/29, 10/10/2012 Hepatitis C Screening Completed 06/29/2023 Pneumococcal vaccine <65 Aged Out No longer eligible based on patient's age to complete this topic Procedures Procedure Name Priority Date/Time Associated Diagnosis Comments XR TRANSFER OF OUTSIDE FILMS Routine 08/27/2024 7:04 PM CDT XR TRANSFER OF OUTSIDE FILMS Routine 08/27/2024 11:13 AM CDT HEPATITIS PANEL, ACUTE STAT 06/29/2023 9:53 AM CDT from Last 3 Months or Most Recently Relevant to Health Maintenance Results * XR Outside Reference (08/27/2024 7:04 PM CDT) Impressions RAD_PACS[facility] - 08/27/2024 7:04 PM CDT These images are for Reference purposes only and have not been reviewed by [facility] Radiology. There will be no report generated by a [facility] Radiologist. Narrative RAD_PACS_[facility] - 08/27/2024 7:04 PM CDT EXAMINATION: Images For Reference Purposes Only Chuck Salgado MD IMG XR PROCEDURES Fi nal Result Performing Organization Address [facility] de Phone Number [facility] * XR Outside Reference (08/27/2024 11:13 AM CDT) Impressions RAD_PACS_[facility] - 08/27/2024 11:13 AM CDT These images are for Reference purposes only and have not been reviewed by [facility] Radiology. There will be no report generated by a [facility] Radiologist. Narrative RAD_PACS_[facility] - 08/27/2024 11:13 AM CDT EXAMINATION: Images For Reference Purposes Only Chuck Salgado MD IMG XR PROCEDURES Fi nal Result Performing Organization Address [facility] Co de Phone Number [facility] * Hepatitis panel, acute Blood (06/29/2023 9:53 AM CDT) Hep A IgM Nonreactive Nonreactive Hep B core IgM Nonreactive Nonreactive [facility] Hep C Ab Nonreactive Nonreactive [facility] Comment:Antibodies to HCV no t detected. Does NOT exclude the possibility of recent exposure to HCV. Current interpretive data was last revised on 21 HepBsAg Nonreactive Nonreactive [facility] Blood 06/29/2023 9:53 AM CDT 06/29/2023 10:32 AM CDT Josué Soto MD LAB MICROBIOLOGY - GENERAL ORDERABLES Final Result [facility] Department [place] [address] from Last 3 Months or Most Recently Relevant to Health Maintenance Insurance PENDING SALE TO [employer] [id number] PENDING SALE [employer] [id number] PENDING SALE TO [employer] [id number] Advance Directives For more information, please contact: [phone] Documents on File Type Date Recorded Patient Pattern Scratcher Expl anation ADVANCE DIRECTIVE 10/11/2020 11:54 PM * Full Code (Latest Code Status on File) Date Activated Date Inactivated Comments 06/29/2023 5:35 PM 07/01/2023 5:04 PM * Full Code Date Activated Date Inactivated Comments 06/29/2023 7:46 AM 06/29/2023 5:35 PM Care Teams Loan Coordinator Relationship Specialty Start Date End Date Kavitha Lino NP [address] [place] [id number] PCP - General Nurse Practitioner 06/30/23
--- OUTSIDE RECORDS SUMMARY | 2024-11-10 21:12 | XMS_ITS | Clinical Summary ---
Author Organization [facility] Address [address] [facility] [place] [address] Care Team Providers Care Bowling Alley Refinisher Name Role Phone Kavitha Lino SANTHOSH-TEXTILE CONVERSION MANAGER Primary Care Provider + Source Comments [facility],non-owned Affiliates and Associated Physician Practices is amultiple site organization consisting of ambulatory clinics and hospital sitesin [place], [place], [place] and [place]. This disclosure is being madepursuant to the Care Everywhere program and may not contain all information available regarding this patient. Last updated 17.[facility] Allergies Active Allergy Reactions Criticality Noted Date Comments Other 06/27/2009 Allergic to Wasp stings Medications * Be aware that medications may not be up to date on this document. Alwaysverify current medications with the patient. acetaminophen (TYLENOL) 325 MG tablet Take 650 mg by mouth every 4 hours as needed for Fever or Pain Maximum allowable Acetaminophen amount = 4 Grams (4000 mg) / 24 hours. Active Active Problems Problem Noted Date Diagnosed Date Concussion 06/29/2017 Acute pharyngitis 02/04/2012 Overview (02/04/2012): 02/04/12 Streptococcal pharyngitis 2009 Overview (04/13/2012): 05/29/09,04/13/12 Immunizations Immunization Administration Dates Next Due DTaP VACCINE IM (6wk-6yrs) 06/23/2005,,2001,09/25,2001 FLU VACCINE TRI IIV3 SPLIT P F IM (FLUVIRIN) 11/21/2010,11/22/2009 HEP A PEDS 2 DOSE 07/13/2004,05/31/2003 HIB Hep B 08/27/2002,2001,2001 Human Papilloma Virus Erin valent Vaccine 04/19/2013,11/14/2012,10/10/2012 INFLUENZA VACCINE 11/23/2008, 8,11/23/2005,12/31,12/03/2002,02/27/2002,01/29/2002 Influenza Nasal 11/27/2011 ERIC VACCINE QUAD LAIV4 PF NASAL 11/23/2013,2012 MENINGOCOCCAL ACWY (MCV4P) VAC IM 10/10/2012 MMR 06/23/2005,06/04/2002 PNEUMOCOCCAL CONJ, PEDS 08/27/2002,12/18,2001,08/03 POLIO IPV 06/23/2005, 2,2001,08/03 PPD 05/31/2003 TDAP (7yrs+) 09/16/2011 VARICELLA 08/16/2006,06/04/2002 Social History Tobacco Use Types Packs/Day Years Used Date Smoking Tobacco: Never Smokeless Tobacco: Never Comments:non smoking househo ld Sex and Gender Information Value Date Recorded Sex Assigned at Not on file Legal Sex Male 6:50 AM COLD TYPE ARTIST Gender Identity Not on file Sexual Orientation Not on file 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 Not on file Not on file Last Filed Vital Signs Vital Sign Reading Time Taken Comments Blood Pressure 120/68 06/30/2017 9:31 AM CDT Pulse 73 02/01/2017 12:53 PM COLD TYPE ARTIST Temperature 37 C (98.6 F) 02/01/2017 12:53 PM COLD TYPE ARTIST Respiratory Rate 16 02/01/2017 12:53 PM COLD TYPE ARTIST Oxygen Saturation 98% 02/01/2017 12:53 PM COLD TYPE ARTIST Inhaled Oxygen Concentration - - Weight 64.5 kg (142 lb 3.2 oz) 06/30/2017 9:31 A M CDT Height 178 cm (5' 10.08) 06/30/2017 9:31 AM CDT Body Mass Index 20.36 06/30/2017 9:31 AM CDT Plan of Treatment Health Maintenance Due Date Last Done Comments HIV SCREENING 2016 MENINGOCOCCAL (Group B) VACCINE SHARED DECISION-MAKING (1 of 2 - Standard) 2017 HEPATITIS C SCREENING 05/25/2019 DTAP/TDAP/TD VACCINES (7 - Td or Tdap) 09/15/2021 09/16/2011, 06/23/2005, 08/27/2002, Additional history exists DEPRESSION SCREENING 02/29/2024 COVID-19 VACCINE ( season) 2024 INFLUENZA VACCINE (#1) 2024 4, 11/25/2012, 11/27/2011, Additional history exists ZOSTER VACCINE (1 of 2) 05/30/2051 HEPATITIS B VACCINE Completed 08/27/2002, 2001, 2001 HIB VACCINE Completed 08/27/2002, 08/29, 2001 PNEUMOCOCCAL VACCINE Completed 08/27/2002, 2001, 2001, Additional history exists MENINGOCOCCAL GROUPS A/C/Y/W VACCINE Aged Out 10/10/2012 No longer eligible based on patient's age to complete this topic HPV VACCINE Completed 04/19/2013, 10/29, 10/10/2012 Insurance * Guarantor: BABAR MONACO Account Type Relation to Patient Date of Phone Billing Address Personal/Family [address] [place] [address] [employer] * Guarantor: BABAR MONACO Account Type Relation to Patient Date of Phone Billing Address Personal/Family [address] [place] [address] Care Teams Bowling Alley Refinisher Relationship Specialty Start Date End Date Kavitha Lino APRN-JACQUIE [address] [address] [place] [address] PCP - General Nurse Practitioner 06/30/17
[2024-11-10 21:20] VITALS: BP 118/82; PULSE 73; RESP 18; TEMP 36.4; O2SAT 99
--- OUTSIDE RECORDS SUMMARY | 2024-11-10 22:31 | XMS_ITS | Clinical Summary ---
Author Organization [facility] Address [address] [place] [address] Care Team Providers Care Mental Health Nurse Name Role Phone Kavitha Lino NP Primary Care Provider [phone] Allergies No known active allergies Medications pantoprazole [...] - 08/27/2024 11:59 PM CDT Hospital Encounter [facility] ([facility]) [address] [place] [address] Discharge Disposition: Discharge to home or self care 08/27/2024 11:55 AM CDT Therapy [facility] Medicine Occupational Therapy [address] [place] [address] Advanced Medicine 6th [place] [address] [place] [address] Mine Omalley OT Closed displaced fracture of shaft of fifth metacarpal bone of right hand with routine healing, subsequent encounter (Primary Dx); Fracture, boxers, open, initial encounter 08/27/2024 11:13 AM CDT - 08/27/2024 11:59 PM CDT Hospital Encounter [facility] ([facility]) [address] [place] [address] Discharge Disposition: Discharge to home or self care 08/27/2024 10:50 AM CDT Office Visit [facility] Medicine Orthopaedic Surgery [address] [place] [address] Medicine 6th [place] [address] [place] [address] Chuck Salgado MD Fracture, boxers, open, initial encounter 08/27/2024 Plan of Care Documentation [facility] Medicine Occupational Therapy [address] [place] [address] 6th [place] [address] [place] [address] from Last 3 Months Surgical History Surgery [...] only and have not been reviewed by [facility] Radiology. There will be no report generated by a [facility] Radiologist. Narrative RAD_PACS_[facility] - 08/27/2024 7:04 PM CDT EXAMINATION: Images For Reference Purposes Only Chuck Salgado MD IMG XR PROCEDURES Fi nal Result Performing Organization Address [facility] de Phone Number [email or web address] * XR Outside Reference (08/27/2024 11:13 AM CDT) Impressions RAD_PACS_[facility] - 08/27/2024 11:13 AM CDT These images are for Reference purposes only and have not been reviewed by [facility] Radiology. There will be no report generated by a [facility] Radiologist. Narrative RAD_PACS_[facility] - 08/27/2024 11:13 AM CDT EXAMINATION: Images For Reference Purposes Only Chuck Salgado MD IMG XR PROCEDURES Fi nal Result Performing Organization Address [facility] Co de Phone Number [facility] * Hepatitis panel, acute Blood (06/29/2023 9:53 AM CDT) Hep A IgM Nonreactive Nonreactive Hep B core IgM Nonreactive Nonreactive [facility] Hep C Ab Nonreactive Nonreactive [facility] Comment:Antibodies to HCV no t detected. Does NOT exclude the possibility of recent exposure to HCV. Current interpretive data was last revised on 21 HepBsAg Nonreactive Nonreactive [facility] Blood 06/29/2023 9:53 AM CDT 06/29/2023 10:32 AM CDT Josué Soto MD LAB MICROBIOLOGY - GENERAL ORDERABLES Final Result [facility] One [facility] Department [place] [address] from Last 3 Months or Most Recently Relevant to Health Maintenance Insurance [facility] [id number] [facility] [id number] [facility] [id number] Advance Directives For more information, please contact: [phone] Documents on File Type Date Recorded Patient Machine Engineer Expl anation ADVANCE DIRECTIVE 10/11/2020 11:54 PM * Full Code (Latest Code Status on File) Date Activated Date Inactivated Comments 06/29/2023 5:35 PM 07/01/2023 5:04 PM * Full Code Date Activated Date Inactivated Comments 06/29/2023 7:46 AM 06/29/2023 5:35 PM Care Teams Mental Health Nurse Relationship Specialty Start Date End Date Kavitha Lino NP [address] [place] [id number] PCP - General Nurse Practitioner 06/30/23
--- OUTSIDE RECORDS SUMMARY | 2024-11-10 22:31 | XMS_ITS | Clinical Summary ---
Author Organization [facility] Address [address] [facility] [place] [address] Care Team Providers Care Ribbon Hand Name Role Phone Kavitha Lino SANTHOSH-CORE DROPPER Primary Care Provider + Source Comments [facility],non-owned Affiliates and Associated Physician Practices is amultiple site organization consisting of ambulatory clinics and hospital sitesin [place], [place], [place] and [place]. This disclosure is being madepursuant to the Care Everywhere program and may not contain all information available regarding this patient. 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 HE[employer] * Guarantor: BABAR MONACO Account Type Relation to Patient Date of Phone Billing Address Personal/Family [address] [place] [address] Care Teams Ribbon Hand Relationship Specialty Start Date End Date Kavitha Lino APRN-JACQUIE [address] [address] [place] [address] PCP - General Nurse Practitioner 06/30/17
--- OUTSIDE RECORDS SUMMARY | 2024-11-10 22:31 | XMS_ITS | Clinical Summary ---
Author Organization [facility] Address [address] [place] [address] Phone Care Team Providers Care Technical Implementation Lead Name Role Phone [place] Kavitha DANA Primary Care Provider [phone] Allergies No known active allergies Medications sertraline [...] HPV VACCINES Completed 04/19/2013, 10/29, 10/10/2012 [facility] Care Teams Technical Implementation Lead Relationship Specialty Start Date End Date Kavitha Lino ANP [address] [phone] PCP - General Nurse Practitioner Adult Health 05/29/19
[2024-11-10] MEDS: HYDROcodone/acetaminophen (*CRX) 5-325 MG TABLET 1 TAB PO (23:10)
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
[2024-11-11 00:13] VITALS: BP 124/67; PULSE 69; RESP 18; O2SAT 99
--- NOTE | 2024-12-01 01:32 | PC.NURSE ---
Late Entry Note: Ulnar Gutter splint was applied on pt right hand on 11/10/24 at 22:02.
== END 2024-11-11 00:13 | disposition home or self-care (01) ==
PROVIDERS: Emergency Provider Physician Assistant; PCP Nurse Practitioner Adult Health
DX: S62.326A Displaced fracture of shaft of fifth metacarpal bone, right hand, initial encounter for closed fracture (principal); W22.09XA Striking against other stationary object, initial encounter
CPT/HCPCS: 29125; 73130; 99284; A9270